=== PATIENT | female | born 1945 | race Caucasian/White ===

== ENCOUNTER 2016-09-14 20:45 | Outpatient (CLI) | payer MEDICARE, OTHER ==
[~2016-09-14 20:45] MED LIST: ALFA600T PO; AMIT25TA9 PO; ATOR10TA66 PO; ATOR20TA66 PO; BISO5TAB PO; BLACK CHERRY; CELE200C PO; CLCX200C PO; D ME PO; DIPH1TAB PO; DM/P295L13 PO; DULO60CA58 PO; DULO60CA6 PO; ESCT10T PO; EST.625T PO; FAMO-119 PO; GABA-531 PO; GABA300C PO; GBPN100C PO; GLIM2TAB PO; GLUC1CAP45 PO; HCT25T PO; HYDR-2890 PO; HYDR-3820 PO; KRIL1CAP12 PO; LOSA50TA36 PO; LSRT50T PO; METF1000 PO; METF500T4 PO; METO-310 PO; MTF500T PO; MULT-974 PO; NIAC1TBM5 PO; OMEP-10 PO; ROYA500C PO; TRAM50TA2 PO; VIT1TABL57 PO; [UNRECOGNIZED DRUG - CODE] PO
--- OUTSIDE RECORDS SUMMARY | 2016-09-14 21:24 | XMS REPORT | Continuity of Care Document ---
Author Author [facility] Organization [facility] Address Unknown Phone Unavailable Care Team Providers Care Assistant Professor Of Sociology Name Role Phone EDEN NEWMAN MD PCP Insurance Providers Payer Name Policy Number Subscriber Name Relationship [employer] Medicare [id number] Kandice Borja 18 Self / Same As Patient For Life [id number] Alphonse Borja 01 Advance Directives Directive Response Recorded Date/Time Advance Directives No 06/25/14 10:02am Health Care Power of Taxicab Driver No 06/25/14 10:02am Organ Donor Yes 06/25/14 10:02am Resuscitation Status Full Code 06/25/14 10:02am Problems No known problems or medical conditions. Medications Medication Dose Route Sig Days/Qty Instructions Order Date Discontinued Date Status Metformin HCl (Glucophage) 1 Each PO TWICE A DAY WITH MEALS 01/03/12 Active Omeprazole 20 Mg PO DAILY 01/03/12 Active Celecoxib 1 Each PO TWICE A DAY 01/03/12 Active Losartan Potassium 50 Mg PO DAILY 01/03/12 Active Hydrochlorothiazide 1 Each PO DAILY 01/03/12 Active Niacin/Simvastatin 1 Each PO 01/03/12 Active Estrogens Conjugated 1 Tab PO DAILY 30 Qty 01/03/12 10/23/13 Discontinued Escitalopram Oxalate 1 Each PO DAILY 01/03/12 10/23/13 Discontinued Gabapentin 100 Mg PO DAILY 10/23/13 Active Gabapentin 3 Each PO BEDTIME 10/23/13 Active Multivitamin 1 Each PO DAILY 10/23/13 Active Vit D3 & K/Berberine Hcl/Hops 1 Each PO DAILY 10/23/13 Active [place] Jelly 500 Mg PO DAILY 10/23/13 Active Krill/[place]-3/Dha/Epa/Lipids 1 Each PO DAILY 10/23/13 Active Glucosamine Sulfate/Msm 1 Each PO DAILY 10/23/13 Active [Black Cardona] 1,000 Mg DAILY 10/23/13 Active Mag Carb/Al Hydrox/Alginic Ac 355 Ml PO AFTER MEALS PRN INDIGESTION 10/23/13 Active [place] 600 Mg PO DAILY 3 Qty 10/23/13 Active Hydrocodone Bit/Acetaminophen 1 Each PO NEEDED 10/23/13 Active D-Methorphan/Pe/Acetaminophen 237 Ml PO NEEDED For COUGH 10/23/13 Active Dm/P-Ephed/Acetaminoph/Doxylam 295 Ml PO NEEDED For COUGH Active Social History Social History Problem Response Recorded Date/Time Recent Foreign Travel No 06/25/2014 10:02am Hospital Discharge Instructions No hospital discharge instructions. Plan of Care No plan of care. Functional Status No functional status results. Allergies, Adverse Reactions, Alerts Allergen Type Severity Reaction Status Last Updated Penicillins ([id number]) Allergy Active 01/04/12 Immunizations Name Given Type Date of Pneumonia Vaccine 09/06/10 Historical Date of Influenza Vaccine 08/12/13 Historical Vital Signs Acute Vital Signs Vital Response Date/Time Temperature (Fahrenheit) 97.2 degrees F (97.6 - 99.5) Temperature (Calculated Celsius) 36.54665 degrees C (36.4 - 37.5) Temperature Source Tympanic Pulse Rate (adult) 70 bpm (60 - 90) Respiratory Rate 14 bpm (12 - 24) O2 Sat by Pulse Oximetry 100 % (88 - 100) Blood Pressure 135/70 mm Hg Pain Pain Intensity 0 Pain Pain Intensity 0 Height (Feet) 5 feet Height (Inches) 7.00 inches Height (Calculated Centimeters) 170.500520 cm Weight (Pounds) 192 pounds Weight (Calculated Grams) 41256.736 gm Weight (Calculated Kilograms) 87.371832 kilograms Calculated BMI 30.07 Results Test Source Date Result Interp. Ref. Range Comments Stool Occult Blood Immunoassay January 02, 2012 4:46pm POSITIVE H - Ova and Parasites Stool January 03, 2012 9:40am Procedures No known history of procedures. Encounters Encounter Location Date/Time Registered Clinic Via [facility] 06/25/14 9:03am
== END 2016-09-15 06:45 | disposition home or self-care (01) ==
LOC: SLEEP 20:45
PROVIDERS: ATTEND Nurse Practitioner Family
DX: G47.33 Obstructive sleep apnea (adult) (pediatric) (principal); G47.10 Hypersomnia, unspecified; G47.34 Idiopathic sleep related nonobstructive alveolar hypoventilation
CPT/HCPCS: 95811

== ENCOUNTER → 2016-10-19 | Outpatient (CLI) | payer MEDICARE, OTHER ==
--- OUTSIDE RECORDS SUMMARY | 2016-10-19 12:55 | XMS REPORT | Continuity of Care Document ---
Author Author [facility] Organization [facility] Address Unknown Phone Unavailable Care Team Providers Care Stretch Machine Operator Name Role Phone EDEN NEWMAN MD PCP Insurance Providers Payer Name Policy Number Subscriber Name Relationship Wps Medicare [id number] Kandice Borja 18 Self / Same As Patient For Life [id number] Alphonse Borja 01 Advance Directives Directive Response Recorded Date/Time Advance Directives No 06/25/14 10:02am Health Care Power of Manufacturing Support Engineer No 06/25/14 10:02am Organ Donor Yes 06/25/14 [...] Hcl/Hops 1 Each PO DAILY 10/23/13 Active [place] Jelly 500 Mg PO DAILY 10/23/13 Active Krill/[place]-3/Dha/Epa/Lipids 1 Each PO DAILY 10/23/13 Active Glucosamine Sulfate/Msm 1 Each PO DAILY 10/23/13 Active [Black Cardona] 1,000 Mg DAILY 10/23/13 Active Mag Carb/Al Hydrox/Alginic Ac 355 Ml PO AFTER MEALS PRN INDIGESTION 10/23/[address] [place] 600 Mg PO DAILY 3 Qty 10/23/13 [...] Type Severity Reaction Status Last Updated Penicillins ([id number]) Allergy Active 01/04/12 Immunizations Name Given Type Date of Pneumonia Vaccine 09/06/10 Historical Date of Influenza Vaccine 08/12/13 Historical Vital Signs Acute Vital Signs Vital Response Date/Time Temperature (Fahrenheit) 97.2 degrees F (97.6 - 99.5) Temperature (Calculated Celsius) 36.21707 degrees C (36.4 - 37.5) Temperature Source Tympanic Pulse Rate (adult) 70 bpm (60 - 90) Respiratory Rate 14 bpm (12 - 24) O2 Sat by Pulse Oximetry 100 % (88 - 100) Blood Pressure 135/70 mm Hg Pain Pain Intensity 0 Pain Pain Intensity 0 Height (Feet) 5 feet Height (Inches) 7.00 inches Height (Calculated Centimeters) 170.053255 cm Weight (Pounds) 192 pounds Weight (Calculated Grams) 71640.736 gm Weight (Calculated Kilograms) 87.464213 kilograms Calculated BMI 30.07 Results Test Source Date Result Interp. Ref. Range Comments Stool Occult Blood Immunoassay January 02, 2012 4:46pm POSITIVE H - Ova and Parasites Stool January 03, 2012 9:40am Procedures No known history of procedures. Encounters Encounter Location Date/Time Registered Clinic [facility] 06/25/14 9:03am
== END ==
LOC: RT 12:52
PROVIDERS: ATTEND Internal Medicine Critical Care Medicine
DX: R06.00 Dyspnea, unspecified (principal)
CPT/HCPCS: 94060; 94726; 94729

== ENCOUNTER → 2017-03-20 | Outpatient (CLI) | payer MEDICARE, OTHER ==
[2017-03-20 12:27] LABS: BILIRUBIN,URINE NEGATIVE (NEGATIVE); KETONES,URINE NEGATIVE (NEGATIVE); LEUKOCYTE ESTERASE ,URINE 3+ (NEGATIVE); NITRITE,URINE NEGATIVE (NEGATIVE); PH,URINE 8 (5-9); PROTEIN,URINE NEGATIVE (NEGATIVE); UROBILINOGEN,URINE NORMAL (NORMAL)
[2017-03-20 12:34] LABS: SQUAMOUS EPITHELIAL CELL,UR 0-2 /HPF; WBC,URINE >100 /HPF
== END ==
LOC: LAB 12:00
PROVIDERS: ATTEND Internal Medicine
DX: R30.0 Dysuria (principal)
CPT/HCPCS: 81000; 87088

== ENCOUNTER 2017-04-25 10:00 | Outpatient (RCR) | payer MEDICARE, OTHER | END 2017-04-28 | disposition home or self-care (01) | LOC: PULM 10:00 | PROVIDERS: ATTEND Nurse Practitioner Family | DX: J98.4 Other disorders of lung (principal); G47.34 Idiopathic sleep related nonobstructive alveolar hypoventilation | CPT/HCPCS: 99211 ==

== ENCOUNTER 2017-05-23 10:00 | Outpatient (RCR) | payer MEDICARE, OTHER | END 2017-05-25 | disposition home or self-care (01) | LOC: PULM 10:00 | PROVIDERS: ATTEND Nurse Practitioner Family | DX: J98.4 Other disorders of lung; G47.34 Idiopathic sleep related nonobstructive alveolar hypoventilation ==

== ENCOUNTER 2017-08-13 10:00 | Outpatient (RCR) | payer MEDICARE, OTHER | END 2017-08-26 | disposition home or self-care (01) | LOC: PULM 10:00 | PROVIDERS: ATTEND Nurse Practitioner Family | DX: J98.4 Other disorders of lung (principal); G47.34 Idiopathic sleep related nonobstructive alveolar hypoventilation ==

== ENCOUNTER 2018-02-02 19:23 | Emergency (ER) | payer MEDICARE, OTHER ==
[~2018-02-02] VITALS: Ht 172.7 cm; Wt 93.2 kg
[~2018-02-02 19:23] MED LIST changes: -METF1000 PO; +METF10002 PO; -METF500T4 PO; +METF500T5 PO
--- OUTSIDE RECORDS SUMMARY | 2018-02-02 19:29 | XMS REPORT ---
Author HEIDI Swenson [facility] [place] eClinicalWorks Address Unknown Phone Unavailable Care Team Providers Care Maxillofacial Pathology Name Role Phone HEIDI HUFFMAN CP Unavailable Allergies No Known Allergies Problems Problem Type Condition Code Onset Dates Condition Status Assessment Encounter for immunization Z23 Active Medications No Known Medications Procedures Procedure Coding System Code Date SINGLE IMMUNIZATION ADMIN CPT-4 21042 Jun 20, 2016 PCV 13 CPT-4 10034 Jun 20, 2016 Results No Known Results Immunizations Vaccine Administration Date PCV 13 Jun 20, 2016 Summary Purpose eClinicalWorks Submission
[2018-02-02] MEDS ORDERED: EXEN2PEN (20:20)
[2018-02-02] MEDS ORDERED: LOSA100T28 (20:20)
[2018-02-02] MEDS ORDERED: BUDE3CAP5 (20:20)
[2018-02-02] MEDS ORDERED: ROPI0.25 (20:20)
--- NOTE | 2018-02-02 21:29 | Diagnostic Imaging Report ---
INDICATION: Right knee pain x1 month. No known injury. TECHNIQUE: 3 views of the right knee CORRELATION STUDY: None FINDINGS: The joint spaces are maintained. The articular surfaces are smooth and preserved. There is no acute bony abnormality. Soft tissues are unremarkable. IMPRESSION: 1. Negative for acute bony abnormality of the knee. Dictated by: Dictated on workstation # [id number]
--- NOTE | 2018-02-02 21:41 | ED Lower Extremity ---
General Chief Complaint: Lower Extremity Stated Complaint: POSS BLOOD CLOT Nursing Triage Note: Patient reports calf pain since . patient reports pain is worse when she walks. patient also reports a positive homans sign Nursing Sepsis Screen: No Definite Risk History of Present Illness Date Seen by Provider: Feb 02, 2018 Time Seen by Provider: 20:45 Initial Comments 72-year-old female reports right calf pain since 01/30/18. She is concerned that she may have a blood clot as she has been doing Homans sign and having pain with this. He is a retired nurse. She denies an injury to her right lower extremity. She has been having some right knee, joint line tenderness. She has no risk factors for blood clot other than being sedentary. She reports sitting for prolonged periods of time with her knees bent. The pain began when she was walking in a fabric store last week. The pain has not improved and is even been significant enough that she is required hydrocodone for management. She does have a positive history of sciatica with radicular pain in the left leg. She reports the current symptoms are not similar to when her sciatica flares up. Onset: last week Pain/Injury Location: right leg, right knee Method of Injury: unknown Modifying Factors: Improves With Pain Medication, Improves With Rest Allergies and Home Medications Allergies Coded Allergies: Penicillins (Unverified Allergy, Unknown, 05/02/16) Home Medications Amitriptyline HCl 25 Mg Tablet, 25 MG PO HS, (Reported) Famotidine 20 Mg Tablet, 20 MG PO BID, (Reported) Patient Home Medication List Home Medication List Reviewed: Yes Constitutional: no symptoms reported, see HPI Musculoskeletal: see HPI, muscle pain (right calf) All Other Systems Reviewed Negative Unless Noted: Yes Past Dmzenvz-Mljlas-Trbrxd Hx Past Med/Social Hx: Reviewed Nursing Past Med/Soc Hx Patient Social History Alcohol Use: Denies Use Recreational Drug Use: No Smoking Status: Never a Smoker Recent Foreign Travel: No Contact w/Someone Who Travel: No Recent Infectious Disease Expo: No Immunizations Up To Date Tetanus Booster (TDap): Less than 5yrs PED Vaccines UTD: Yes Date of Pneumonia Vaccine: May 26, 2012 Date of Influenza Vaccine: Aug 12, 2013 Past Medical History Surgeries: Yes (CATATACTS) Gallbladder, Hysterectomy Respiratory: No Currently Using CPAP: No Currently Using BIPAP: No Cardiac: No Heart Attack, High Cholesterol, Hypertension Neurological: Yes Headaches /Migraines Reproductive Disorders: No Sexually Transmitted Disease: No HIV/AIDS: No Gastrointestinal: No Musculoskeletal: Yes (ARTHRITIS, chronic neck pain) Endocrine: Yes Diabetes, Non-Insulin dep Cataract Loss of Vision: Denies Hearing Impairment: Denies Cancer: No Psychosocial: No Integumentary: No Blood Disorders: No Family Medical History Cardiovascular disease 19 FATHER Cataracts 19 FATHER G8 SISTER Diabetes mellitus 19 MOTHER G8 SISTER Myocardial infarction 19 FATHER No Pertinent Family Hx Physical Exam Vital Signs Vital Signs - First Documented 02/02/18 20:15 Temp 98.7 Pulse 89 Resp 18 B/P (MAP) 188/101 (130) Pulse Ox 99 Capillary Refill : Less Than 3 Seconds General Appearance: WD/WN, no apparent distress Cardiovascular: normal peripheral pulses (dorsalis pedis pulses 2+ and symmetric, posterior tibialis pulses 1+ and symmetric, cap refill and toes less than 5 seconds bilaterally.), regular rate, rhythm, no murmur Respiratory: chest non-tender, lungs clear, normal breath sounds, no respiratory distress Gastrointestinal: normal bowel sounds, non tender, soft Legs: left leg non-tender, left leg normal inspection, left leg normal range of motion, left leg no evidence of injury; right leg pain (throughout the right gastrocnemius), right leg other (positive Homans sign) Knees: right knee normal inspection, right knee normal range of motion, right knee no evidence of injury, right knee bone tenderness (medial tibia), right knee soft tissue tenderness Ankles: right ankle non-tender, right ankle normal inspection, right ankle normal range of motion, right ankle no evidence of injury Neurologic/Psychiatric: no motor/sensory deficits, alert, normal mood/affect, oriented x 3 Progress/Results/Core Measures Results/Orders My Orders Orders - NICKIE GARNICA Knee, Right, 3 Views (02/02/18 20:58) Us Venous Lower Ext Rt (02/02/18 21:29) Vital Signs/I&O 02/02/18 02/02/18 20:15 21:50 Temp 98.7 98.7 Pulse 89 89 Resp 18 18 B/P (MAP) 188/101 (130) 162/89 (130) Pulse Ox 99 99 Blood Pressure Mean: 130 Progress Progress Note : Time: 20:45 Progress Note Initial evaluation completed, recommended ultrasound of the right lower extremity and x-ray of the right knee. Will continue to follow patient. Diagnostic Imaging Diagonstic Imaging: Xray Plain Films/CT/US/NM/MRI: knee Comments NAME: HYUN BORJA [facility] REC#: [id number] PT STATUS: REG ER : 1945 PHYSICIAN: NICKIE GARNICA ADMIT DATE: 02/02/18/ER Signed Date of Exam: 02/02/18 KNEE, RIGHT, 3 VIEWS INDICATION: Right knee pain x1 month. No known injury. TECHNIQUE: 3 views of the right knee CORRELATION STUDY: None FINDINGS: The joint spaces are maintained. The articular surfaces are smooth and preserved. There is no acute bony abnormality. Soft tissues are unremarkable. IMPRESSION: 1. Negative for acute bony abnormality of the knee. Dictated by: Dictated on workstation # [id number] Dict: 02/02/182125 Trans: 02/02/182126 Interpreted by: JAME COLBY DO Electronically signed by: JAME COLBY DO 02/02/182126 Reviewed: Reviewed/Discussed Diagonstic Imaging: Ultrasound Plain Films/CT/US/NM/MRI: leg (right lower extremity) Comments No DVT or cyst noted on study, per video game repair technician. Will be over read by radiology. Departure Impression Primary Impression: Pain of right lower extremity Disposition: HOME, SELF-CARE Condition: Stable Departure-Patient Inst. Decision time for Depature: 21:40 Referrals: EDEN SANCHEZ MD (PCP/Family) Primary Care Physician Patient Instructions: Knee Pain (DC) Add. Discharge Instructions: Alternate heat and ice to areas of pain and right lower extremity. Continue to take your home medications and pain medication as needed. Follow-up with Dr. Sanchez if symptoms are not improving or worsen. Return to emergency department for new, urgent health care problems. All discharge instructions reviewed with patient and/or family. Voiced understanding. NICKIE GARNICA Feb 02, 2018 21:41
[2018-02-02 21:50] VITALS: BP 162/89
--- NOTE | 2018-02-06 14:36 | Diagnostic Imaging Report ---
INDICATION: Right leg pain. Right leg venous Doppler study was performed in the routine fashion with color flow Doppler and waveform analysis. FINDINGS: The right common femoral vein, superficial femoral vein, popliteal vein and visualized portion of the tibial veins show normal compressibility and venous flow patterns. There is normal augmentation. IMPRESSION: No evidence of deep vein thrombosis of the major veins of the right leg. Dictated by: Dictated on workstation # [id number]
== END 2018-02-02 21:50 | disposition home or self-care (01) ==
LOC: EDUNIT# 19:23 → ER 19:25
DX: M79.661 Pain in right lower leg (principal); E78.00 Pure hypercholesterolemia, unspecified; I10 Essential (primary) hypertension; I25.2 Old myocardial infarction; E11.9 Type 2 diabetes mellitus without complications; G43.909 Migraine, unspecified, not intractable, without status migrainosus; Z88.0 Allergy status to penicillin; Z90.710 Acquired absence of both cervix and uterus; Z82.49 Family history of ischemic heart disease and other diseases of the circulatory system
CPT/HCPCS: 73562

== ENCOUNTER 2018-05-21 12:55 | Outpatient (RCR) | payer MEDICARE, OTHER ==
[~2018-05-21 12:55] MED LIST changes: +BUDE3CAP5; +EXEN2PEN; +LOSA100T8; -LOSA50TA36 PO; +LOSA50TA7 PO; +METF-397 PO; +METF-399 PO; -METF10002 PO; -METF500T5 PO; +ROPI0.253
== END 2018-05-26 08:47 | disposition home or self-care (01) ==
PROVIDERS: ATTEND Internal Medicine
DX: R53.1 Weakness (principal); E11.9 Type 2 diabetes mellitus without complications; R29.6 Repeated falls

== ENCOUNTER → 2018-06-30 | Outpatient (CLI) | payer MEDICARE, OTHER ==
[~2018-06-30] MED LIST changes: +RT-ALBUTEROL SULF 2.5 MG/3 ML PRE-MIX VIAL INH ONE
== END ==
LOC: RT 11:18
PROVIDERS: ATTEND Nurse Practitioner Family
DX: R06.00 Dyspnea, unspecified (principal); G47.34 Idiopathic sleep related nonobstructive alveolar hypoventilation; J98.4 Other disorders of lung; E66.9 Obesity, unspecified
CPT/HCPCS: 94060; 94726; 94729

== ENCOUNTER 2018-07-04 13:11 | Outpatient (RCR) | payer MEDICARE, OTHER ==
[~2018-07-04 13:11] MED LIST changes: -RT-ALBUTEROL SULF 2.5 MG/3 ML PRE-MIX VIAL INH ONE
== END 2018-07-04 14:18 | disposition home or self-care (01) ==
PROVIDERS: ATTEND Internal Medicine
DX: R53.1 Weakness (principal); E11.9 Type 2 diabetes mellitus without complications; R29.6 Repeated falls

== ENCOUNTER 2018-07-14 14:14 | Outpatient (RCR) | payer MEDICARE, OTHER ==
[~2018-07-14] VITALS: Ht 172.7 cm; Wt 92.1 kg
[~2018-07-14 14:14] MED LIST changes: +LOSA100T57; -LOSA100T8; +LOSA50TA63 PO; -LOSA50TA7 PO
[2018-07-14 14:18] VITALS: BP 140/60
--- NOTE | 2018-07-14 14:50 | Pulmonary Rehab Eval/Txmt Plan ---
Pulmonary Rehab Initial Eval Information Paper Evaluation Completed: No Date: Jul 14, 2018 Therapist: YOBANY DURAN Diagnosis: RLD Referring Physician: LEYDI LOUIS APRN Pulmonary Rehab Treatment Plan Treatment P Treatment Periord: Initial Diagnosis Diagnosis: RLD Date: Jul 14, 2018 Assessment/Problems Exercise: Deconditioning, Decreased Exer Tolerance, No Regular Exercise, Sedentary Type: AEROBIC PER PT MARGARETH; PT HAS BALANCE ISSUES Frequency: 2X WEEK Duration: 1 HR, EXERCISE PER PT'S MARGARETH Barriers to Exercise: BALLANCE Initial MET Level: 1 Aerobic Exercise/Goals Freq: time per week minus AR: 2 Intensity: 1 Type: Arm Ergometry, Bike, Scifi/Nustep, Treadmill, Walking LAYLA JUARES DO Jul 14, 2018 14:50
== END 2018-10-12 | disposition home or self-care (01) ==
LOC: PULM 14:14
PROVIDERS: ATTEND Nurse Practitioner Family
DX: R06.00 Dyspnea, unspecified (principal); J98.4 Other disorders of lung; G47.33 Obstructive sleep apnea (adult) (pediatric)

== ENCOUNTER 2018-08-09 14:54 | Emergency (ER) | payer MEDICARE, OTHER ==
[~2018-08-09] VITALS: Ht 162.6 cm; Wt 72.6 kg
[~2018-08-09 14:54] MED LIST changes: -LOSA100T57; +LOSA100T8; -LOSA50TA63 PO; +LOSA50TA7 PO
--- OUTSIDE RECORDS SUMMARY | 2018-08-09 15:03 | XMS REPORT | Continuity of Care Document ---
Author Author [facility] Organization [facility] Address Unknown Phone Unavailable Allergies Active Description Code Type Severity Reaction Onset Reported/Identified Relationship to Patient Clinical Status Yes Penicillins [id number] Drug Allergy Unknown N/A 05/02/2016 Medications There is no data. Problems Date Dx Coded Attending Type Code Diagnosis Diagnosed By EDEN NEWMAN MD Ot E11.9 TYPE 2 DIABETES MELLITUS WITHOUT COMPLIC EDEN NEWMAN MD Ot R29.6 REPEATED FALLS EDEN NEWMAN MD Ot R53.1 WEAKNESS 07/25/1417 EDEN NEWMAN MD Ot E11.9 TYPE 2 DIABETES MELLITUS WITHOUT COMPLIC 07/25/1417 EDEN NEWMAN MD Ot R29.6 REPEATED FALLS 07/25/1417 EDEN NEWMAN MD Ot R53.1 WEAKNESS 01/02/2010 Ot 250.00 01/02/2010 Ot 311 01/02/2010 Ot 722.52 01/02/2010 Ot V57.1 01/04/2012 Ot 558.9 NONINF GASTROENTERIT NEC 04/01/2012 Ot 787.91 DIARRHEA 10/23/2013 EDEN NEWMAN MD Ot 211.1 BENIGN NEOPLASM STOMACH 10/23/2013 EDEN NEWMAN MD Ot 535.40 OTH SPECIFIED GASTRITIS,W/O MENTION OF H 06/25/2014 GANESH SANCHEZ MD Ot 721.3 LUMBOSACRAL SPONDYLOSIS 06/25/2014 GANESH SANCHEZ MD Ot 722.52 LUMB/LUMBOSAC DISC DEGEN 06/25/2014 GANESH SANCHEZ MD Ot V58.69 OTH MED,LT,CURRENT USE 12/15/2014 Ot V76.12 12/15/2014 Ot V76.12 12/15/2014 Ot V76.12 12/15/2014 Ot V72.84 12/15/2014 Ot 787.91 12/15/2014 EDEN NEWMAN MD Ot V72.84 12/15/2014 TRENT NAZARIO, EDEN Resendiz Ot 440.0 12/15/2014 TRENT NAZARIO, EDEN Resendiz Ot 553.1 12/15/2014 TRENT NAZARIO, EDEN Resendiz Ot 571.8 12/15/2014 TRENT NAZARIO, EDEN Resendiz Ot 789.00 12/15/2014 TRENT NAZARIO, EDEN Resendiz Ot 790.5 12/15/2014 LAURA NAZARIO, GANESH Fitzpatrick Ot 722.52 12/17/2014 TRENT NAZARIO, EDEN Resendiz Ot V76.12 12/17/2014 TRENT NAZARIO, EDEN Resendiz Ot V76.12 12/24/2014 TRENT NAZARIO, EDEN Resendiz Ot V76.12 12/27/2014 Ot V76.12 12/27/2014 Ot V76.12 12/27/2014 Ot V72.84 12/27/2014 Ot 787.91 12/27/2014 TRENT NAZARIO, EDEN Resendiz Ot V72.84 12/27/2014 TRENT NAZARIO, EDEN Resendiz Ot 440.0 12/27/2014 TRENT NAZARIO, EDEN Resendiz Ot 553.1 12/27/2014 TRENT NAZARIO, EDEN Resendiz Ot 571.8 12/27/2014 TRENT NAZARIO, EDEN Resendiz Ot 789.00 12/27/2014 TRENT NAZARIO, EDEN Resendiz Ot 790.5 12/27/2014 GANESH SANCHEZ MD Ot 722.52 12/27/2014 TRENT NAZARIO, EDEN Resendiz Ot V76.12 12/31/2014 LAURA NAZARIO, GANESH Fitzpatrick Ot 722.52 LUMB/LUMBOSAC DISC DEGEN 12/31/2014 LAURA NAZARIO, GANESH Fitzpatrick Ot V58.69 OT MED,LT,CURRENT USE 12/31/2014 Ot V76.12 12/31/2014 Ot V76.12 12/31/2014 Ot V76.12 12/31/2014 Ot V72.84 12/31/2014 Ot 787.91 12/31/2014 TRENT NAZARIO, EDEN Resendiz Ot V72.84 12/31/2014 TRENT NAZARIO, EDEN Resendiz Ot 440.0 12/31/2014 TRENT NAZARIO, EDEN Resendiz Ot 553.1 12/31/2014 TRENT NAZARIO, EDEN Resendiz Ot 571.8 12/31/2014 TRENT NAZARIO, EDEN Resendiz Ot 789.00 12/31/2014 EDEN NEWMAN MD Ot 790.5 12/31/2014 GANESH SANCHEZ MD Ot 722.52 12/31/2014 EDEN NEWMAN MD Ot V76.12 12/31/2014 GANESH SANCHEZ MD Ot 722.52 01/03/2015 EDEN NEWMAN MD Ot V76.12 01/03/2015 EDEN NEWMAN MD Ot V76.12 01/14/2015 EDEN NEWMAN MD Ot V76.12 01/31/2015 GANESH SANCHEZ MD Ot 722.52 02/09/2015 GANESH SANCHEZ MD Ot 722.52 05/03/2015 GANESH SANCHEZ MD Ot 722.52 05/03/2015 GANESH SANCHEZ MD Ot V58.69 05/16/2015 GANESH SANCHEZ MD Ot 722.52 05/16/2015 GANESH SANCHEZ MD Ot V58.69 07/08/2015 Ot V76.12 07/08/2015 Ot V76.12 07/08/2015 Ot V76.12 07/08/2015 Ot V72.84 07/08/2015 Ot 787.91 07/08/2015 EDEN NEWMAN MD Ot V72.84 07/08/2015 TRENT NAZARIO, EDEN Resendiz Ot 440.0 07/08/2015 EDEN NEWMAN MD Ot 553.1 07/08/2015 EDEN NEWMAN MD Ot 571.8 07/08/2015 EDEN NEWMAN MD Ot 789.00 07/08/2015 EDEN NEWMAN MD Ot 790.5 07/08/2015 GANESH SANCHEZ MD Ot 722.52 07/08/2015 EDEN NEWMAN MD Ot V76.12 07/08/2015 GANESH SANCHEZ MD Ot 722.52 07/08/2015 GANESH SANCHEZ MD Ot 722.52 07/08/2015 GANESH SANCHEZ MD Ot V58.69 07/08/2015 GANESH SANCHEZ MD Ot M51.16 INTERVERTEBRAL DISC DISORDERS W RADICULO 07/08/2015 GANESH SANCHEZ MD Ot 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69 10/18/2015 Ot V76.12 10/18/2015 Ot V76.12 10/18/2015 Ot V72.84 10/18/2015 Ot 787.91 10/18/2015 TRENT NAZARIO, EDEN Resendiz Ot V72.84 10/18/2015 TRENT NAZARIO, EDEN Resendiz Ot 440.0 10/18/2015 TRENT NAZARIO, EDEN Resendiz Ot 553.1 10/18/2015 TRENT NAZARIO, EDEN Resendiz Ot 571.8 10/18/2015 TRENT NAZARIO, EDEN Resendiz Ot 789.00 10/18/2015 TRENT NAZARIO, EDEN Resendiz Ot 790.5 10/18/2015 GANESH SANCHEZ MD Ot 722.52 10/18/2015 EDEN NEWMAN MD Ot V76.12 10/18/2015 GANESH SANCHEZ MD Ot 722.52 10/18/2015 GANESH SANCHEZ MD Ot 722.52 10/18/2015 GANESH SANCHEZ MD Ot V58.69 12/06/2015 Ot V76.12 12/06/2015 Ot V76.12 12/06/2015 Ot V72.84 12/06/2015 Ot 787.91 12/06/2015 TRENT NAZARIO, EDEN Resendiz Ot V72.84 12/06/2015 TRENT NAZARIO, EDEN Resendiz Ot 440.0 12/06/2015 TRENT NAZARIO, EDEN Resendiz Ot 553.1 12/06/2015 EDEN NEWMAN MD Ot 571.8 12/06/2015 TRENT NAZARIO, EDEN Resendiz Ot 789.00 12/06/2015 EDEN NEWMAN MD Ot 790.5 12/06/2015 LAURA NAZARIO, GANESH Fitzpatrick Ot 722.52 12/06/2015 EDEN NEWMAN MD Ot V76.12 12/06/2015 LAURA NAZARIO, GANESH Fitzpatrick Ot 722.52 12/06/2015 LAURA NAZARIO, GANESH Fitzpatrick Ot 722.52 12/06/2015 LAURA NAZARIO, GANESH Fitzpatrick Ot V58.69 12/12/2015 TRENT NAZARIO, EDEN Resendiz Ot R51 HEADACHE 12/28/2015 EDEN NEWMAN MD Ot R51 HEADACHE 12/30/2015 O'FRAGA, KAMLESH T BOILERS INSPECTOR Ot G47.10 HYPERSOMNIA, UNSPECIFIED 12/30/2015 O'FRAGA, KAMLESH T BOILERS INSPECTOR Ot H02.402 UNSPECIFIED PTOSIS OF LEFT EYELID 12/30/2015 O'FRAGA, KAMLESH T BOILERS INSPECTOR Ot M54.2 CERVICALGIA 12/30/2015 O'FRAGA, KAMLESH T BOILERS INSPECTOR Ot M79.609 PAIN IN UNSPECIFIED LIMB 12/30/2015 O'FRAGA, KAMLESH T BOILERS INSPECTOR Ot R00.0 TACHYCARDIA, UNSPECIFIED 12/30/2015 O'FRAGA, KAMLESH T BOILERS INSPECTOR Ot R20.2 PARESTHESIA OF SKIN 12/30/2015 O'FRAGA, KAMLESH T BOILERS INSPECTOR Ot R27.0 ATAXIA, UNSPECIFIED 12/30/2015 O'FRAGA, KAMLESH T BOILERS INSPECTOR Ot R29.2 ABNORMAL REFLEX 12/30/2015 O'FRAGA, KAMLESH T BOILERS INSPECTOR Ot R51 HEADACHE 01/07/2016 Ot V76.12 OTH SCREEN MAMMO-MALIGN NEOPLASM OF [place] 01/07/2016 Ot V76.12 OTH SCREEN MAMMO-MALIGN NEOPLASM OF [place] 01/07/2016 Ot V72.84 EXAM PRE- OPERATIVE NOS 01/07/2016 Ot 787.91 DIARRHEA 01/07/2016 EDEN NEWMAN MD Ot V72.84 EXAM PRE-OPERATIVE NOS 01/07/2016 TRENT NAZARIO, EDEN Resendiz Ot 440.0 AORTIC ATHEROSCLEROSIS 01/07/2016 EDEN NEWMAN MD Ot 553.1 UMBILICAL HERNIA 01/07/2016 EDEN NEWMAN MD Ot 571.8 CHRONIC LIVER DIS NEC 01/07/2016 TRENT NAZARIO, EDEN Resendiz Ot 789.00 ABDOMINAL PAIN, UNSPECIFIED SITE 01/07/2016 EDEN NEWMAN MD Ot 790.5 ABN SERUM ENZY LEVEL NEC 01/07/2016 LAURA NAZARIO, GANESH Fitzpatrick Ot 722.52 LUMB/LUMBOSAC DISC DEGEN 01/07/2016 EDEN NEWMAN MD Ot V76.12 OTH SCREEN MAMMO-MALIGN NEOPLASM OF [place] 01/07/2016 GANESH SANCHEZ MD Ot 722.52 LUMB/LUMBOSAC DISC DEGEN 01/07/2016 GANESH SANCHEZ MD Ot 722.52 LUMB/LUMBOSAC DISC DEGEN 01/07/2016 GANESH SANCHEZ MD Ot V58.69 OTH MED,LT,CURRENT USE 01/07/2016 EDEN NEWMAN MD Ot R51 HEADACHE 01/07/2016 O'FRAGA, KAMLESH T BOILERS INSPECTOR Ot G47.10 HYPERSOMNIA, UNSPECIFIED 01/07/2016 O'FRAGA, KAMLESH T BOILERS INSPECTOR Ot H02.402 UNSPECIFIED PTOSIS OF LEFT EYELID 01/07/2016 O'FRAGA, KAMLESH T BOILERS INSPECTOR Ot M54.2 CERVICALGIA 01/07/2016 O'FRAGA, KAMLESH T BOILERS INSPECTOR Ot M79.609 PAIN IN UNSPECIFIED LIMB 01/07/2016 O'FRAGA, KAMLESH T BOILERS INSPECTOR Ot R00.0 TACHYCARDIA, UNSPECIFIED 01/07/2016 O'FRAGA, KAMLESH T BOILERS INSPECTOR Ot R20.2 PARESTHESIA OF SKIN 01/07/2016 O'FRAGA, KAMLESH T BOILERS INSPECTOR Ot R27.0 ATAXIA, UNSPECIFIED 01/07/2016 O'FRAGA, KAMLESH T BOILERS INSPECTOR Ot R29.2 ABNORMAL REFLEX 01/07/2016 O'FRAGA, KAMLESH T BOILERS INSPECTOR Ot R51 HEADACHE 01/07/2016 EDEN NEWMAN MD Ot R19.7 DIARRHEA, UNSPECIFIED 01/07/2016 Ot 787.91 DIARRHEA 01/07/2016 EDEN NEWMAN MD Ot R19.7 DIARRHEA, UNSPECIFIED 01/10/2016 EDEN NEWMAN MD Ot R51 HEADACHE 01/11/2016 EDEN NEWMAN MD Ot A09 INFECTIOUS GASTROENTERITIS AND COLITIS, 01/11/2016 EDEN NEWMAN MD Ot A41.51 SEPSIS DUE TO ESCHERICHIA COLI [E. COLI] 01/11/2016 TRENT NAZARIO, EDEN Resendiz Ot E11.65 TYPE 2 DIABETES MELLITUS WITH HYPERGLYCE 01/11/2016 TRENT NAZARIO, EDEN Resendiz Ot E78.0 PURE HYPERCHOLESTEROLEMIA 01/11/2016 EDEN NEWMAN MD Ot E83.42 HYPOMAGNESEMIA 01/11/2016 EDEN NEWMAN MD Ot E86.0 DEHYDRATION 01/11/2016 EDEN NEWMAN MD Ot E87.6 HYPOKALEMIA 01/11/2016 EDEN NEWMAN MD Ot I10 ESSENTIAL (PRIMARY) HYPERTENSION 01/11/2016 EDEN NEWMAN MD Ot I25.10 ATHSCL HEART DISEASE OF [place] CORONARY 01/11/2016 EDEN NEWMAN MD Ot I25.2 OLD MYOCARDIAL INFARCTION 01/11/2016 EDEN NEWMAN MD Ot K85.9 ACUTE PANCREATITIS, UNSPECIFIED 01/11/2016 EDEN NEWMAN MD Ot M47.9 SPONDYLOSIS, UNSPECIFIED 01/11/2016 EDEN NEWMAN MD Ot N17.9 ACUTE KIDNEY FAILURE, UNSPECIFIED 01/11/2016 EDEN NEWMAN MD Ot N30.01 ACUTE CYSTITIS WITH HEMATURIA 01/11/2016 TRENT NAZARIO, EDEN Resendiz Ot R19.7 DIARRHEA, UNSPECIFIED 01/11/2016 EDEN NEWMAN MD Ot R51 HEADACHE 01/11/2016 EDEN NEWMAN MD Ot R65.20 SEVERE SEPSIS WITHOUT SEPTIC SHOCK 01/11/2016 EDEN NEWMAN MD Ot R74.8 ABNORMAL LEVELS OF OTHER SERUM ENZYMES 01/11/2016 TRENT NAZARIO, EDEN Resendiz Ot S00.83XA CONTUSION OF OTHER PART OF HEAD, INITIAL 01/11/2016 EDEN NEWMAN MD Ot W19.XXXA UNSPECIFIED FALL, INITIAL ENCOUNTER 01/11/2016 EDEN NEWMAN MD Ot Y92.[address] H[facility]ITAL PLACE 01/17/2016 Ot V76.12 OTH SCREEN MAMMO-MALIGN NEOPLASM OF [place] 01/17/2016 Ot V76.12 OTH SCREEN MAMMO-MALIGN NEOPLASM OF [place] 01/17/2016 Ot V72.84 EXAM PRE- OPERATIVE NOS 01/17/2016 Ot 787.91 DIARRHEA 01/17/2016 EDEN NEWMAN MD Ot V72.84 EXAM PRE-OPERATIVE NOS 01/17/2016 TRENT NAZARIO, EDEN Resendiz Ot 440.0 AORTIC ATHEROSCLEROSIS 01/17/2016 TRENT NAZARIO, EDEN Resendiz Ot 553.1 UMBILICAL HERNIA 01/17/2016 EDEN NEWMAN MD Ot 571.8 CHRONIC LIVER DIS NEC 01/17/2016 EDEN NEWMAN MD Ot 789.00 ABDOMINAL PAIN, UNSPECIFIED SITE 01/17/2016 TRENT NAZARIO, EDEN Resendiz Ot 790.5 ABN SERUM ENZY LEVEL NEC 01/17/2016 LAURA NAZARIO, GANESH Fitzpatrick Ot 722.52 LUMB/LUMBOSAC DISC DEGEN 01/17/2016 EDEN NEWMAN MD Ot V76.12 OTH SCREEN MAMMO-MALIGN NEOPLASM OF [place] 01/17/2016 GANESH SANCHEZ MD Ot 722.52 LUMB/LUMBOSAC DISC DEGEN 01/17/2016 GANESH SANCHEZ MD Ot 722.52 LUMB/LUMBOSAC DISC DEGEN 01/17/2016 LAURA NAZARIO, GANESH Fitzpatrick Ot V58.69 OTH MED,LT,CURRENT USE 01/17/2016 TRENT NAZARIO, EDEN Resendiz Ot R51 HEADACHE 01/17/2016 O'FRAGA, KAMLESH T BOILERS INSPECTOR Ot G47.10 HYPERSOMNIA, UNSPECIFIED 01/17/2016 O'FRAGA, KAMLESH T BOILERS INSPECTOR Ot H02.402 UNSPECIFIED PTOSIS OF LEFT EYELID 01/17/2016 O'FRAGA, KAMLESH T BOILERS INSPECTOR Ot M54.2 CERVICALGIA 01/17/2016 O'FRAGA, KAMLESH T BOILERS INSPECTOR Ot M79.609 PAIN IN UNSPECIFIED LIMB 01/17/2016 O'FRAGA, KAMLESH T BOILERS INSPECTOR Ot R00.0 TACHYCARDIA, UNSPECIFIED 01/17/2016 O'FRAGA, KAMLESH T BOILERS INSPECTOR Ot R20.2 PARESTHESIA OF SKIN 01/17/2016 O'FRAGA, KAMLESH T BOILERS INSPECTOR Ot R27.0 ATAXIA, UNSPECIFIED 01/17/2016 O'FRAGA, KAMLESH T BOILERS INSPECTOR Ot R29.2 ABNORMAL REFLEX 01/17/2016 O'FRAGA, KAMLESH T BOILERS INSPECTOR Ot R51 HEADACHE 01/17/2016 EDEN NEWMAN MD Ot R19.7 DIARRHEA, UNSPECIFIED 01/19/2016 O'FRAGA, KAMLESH T BOILERS INSPECTOR Ot G47.10 HYPERSOMNIA, UNSPECIFIED 01/19/2016 O'FRAGA, KAMLESH T BOILERS INSPECTOR Ot H02.402 UNSPECIFIED PTOSIS OF LEFT EYELID 01/19/2016 O'FRAGA, KAMLESH T BOILERS INSPECTOR Ot M54.2 CERVICALGIA 01/19/2016 O'FRAGA, KAMLESH T BOILERS INSPECTOR Ot M79.609 PAIN IN UNSPECIFIED LIMB 01/19/2016 O'FRAGA, KAMLESH T BOILERS INSPECTOR Ot R00.0 TACHYCARDIA, UNSPECIFIED 01/19/2016 O'FRAGA, KAMLESH T BOILERS INSPECTOR Ot R20.2 PARESTHESIA OF SKIN 01/19/2016 O'FRAGA, KAMLESH T BOILERS INSPECTOR Ot R27.0 ATAXIA, UNSPECIFIED 01/19/2016 O'FRAGA, KAMLESH T BOILERS INSPECTOR Ot R29.2 ABNORMAL REFLEX 01/19/2016 O'FRAGA, KAMLESH T BOILERS INSPECTOR Ot R51 HEADACHE 01/28/2016 O'FRAGA, KAMLESH T BOILERS INSPECTOR Ot G47.10 HYPERSOMNIA, UNSPECIFIED 01/28/2016 O'FRAGA, KAMLESH T BOILERS INSPECTOR Ot H02.402 UNSPECIFIED PTOSIS OF LEFT EYELID 01/28/2016 O'FRAGA, KAMLESH T BOILERS INSPECTOR Ot M54.2 CERVICALGIA 01/28/2016 O'FRAGA, KAMLESH T BOILERS INSPECTOR Ot M79.609 PAIN IN UNSPECIFIED LIMB 01/28/2016 O'FRAGA, KAMLESH T BOILERS INSPECTOR Ot R00.0 TACHYCARDIA, UNSPECIFIED 01/28/2016 O'FRAGA, KAMLESH T BOILERS INSPECTOR Ot R20.2 PARESTHESIA OF SKIN 01/28/2016 O'FRAGA, KAMLESH T BOILERS INSPECTOR Ot R27.0 ATAXIA, UNSPECIFIED 01/28/2016 O'FRAGA, KAMLESH T BOILERS INSPECTOR Ot R29.2 ABNORMAL REFLEX 01/28/2016 O'FRAGA, KAMLESH T BOILERS INSPECTOR Ot R51 HEADACHE 02/10/2016 OTHER, UNLISTED Ot M62.838 OTHER MUSCLE SPASM 03/15/2016 TRENT NAZARIO, EDEN Resendiz Ot R19.7 DIARRHEA, UNSPECIFIED 04/01/2016 TRENT NAZARIO, EDEN Resendiz Ot R19.7 DIARRHEA, UNSPECIFIED 05/02/2016 Ot 787.91 DIARRHEA 05/02/2016 EDEN NEWMAN MD Ot R19.7 DIARRHEA, UNSPECIFIED 05/02/2016 EDEN NEWMAN MD Ot K52.9 NONINFECTIVE GASTROENTERITIS AND COLITIS 05/02/2016 EEDN NEWMAN MD Ot R63.4 ABNORMAL WEIGHT LOSS 05/02/2016 EDEN NEWMAN MD Ot Z01.818 ENCOUNTER FOR OTHER PREPROCEDURAL EXAMIN 05/03/2016 EDEN NEWMAN MD Ot K52.9 NONINFECTIVE GASTROENTERITIS AND COLITIS 05/03/2016 EDEN NEWMAN MD Ot R63.4 ABNORMAL WEIGHT LOSS 05/03/2016 TRENT NAZARIO, EDEN Resendiz Ot Z01.818 ENCOUNTER FOR OTHER PREPROCEDURAL EXAMIN 05/04/2016 Ot V76.12 OTH SCREEN MAMMO-MALIGN NEOPLASM OF [place] 05/04/2016 Ot V76.12 OTH SCREEN MAMMO-MALIGN NEOPLASM OF [place] 05/04/2016 Ot V72.84 EXAM PRE- OPERATIVE NOS 05/04/2016 Ot 787.91 DIARRHEA 05/04/2016 EDEN NEWMAN MD Ot V72.84 EXAM PRE-OPERATIVE NOS 05/04/2016 EDEN NEWMAN MD Ot 440.0 AORTIC ATHEROSCLEROSIS 05/04/2016 EDEN NEWMAN MD Ot 553.1 UMBILICAL HERNIA 05/04/2016 EDEN NEWMAN MD Ot 571.8 CHRONIC LIVER DIS NEC 05/04/2016 EDEN NEWMAN MD Ot 789.00 ABDOMINAL PAIN, UNSPECIFIED SITE 05/04/2016 EDEN NEWMAN MD Ot 790.5 ABN SERUM ENZY LEVEL NEC 05/04/2016 GANESH SANCHEZ MD Ot 722.52 LUMB/LUMBOSAC DISC DEGEN 05/04/2016 EDEN NEWMAN MD Ot V76.12 OTH SCREEN MAMMO-MALIGN NEOPLASM OF [place] 05/04/2016 GANESH SANCHEZ MD Ot 722.52 LUMB/LUMBOSAC DISC DEGEN 05/04/2016 GANESH SANCHEZ MD, Ot 722.52 LUMB/LUMBOSAC DISC DEGEN 05/04/2016 GANESH SANCHEZ MD Ot V58.69 OTH MED,LT,CURRENT USE 05/04/2016 EDEN NEWMAN MD Ot R51 HEADACHE 05/04/2016 Pratima'FRAGA, KAMLESH T BOILERS INSPECTOR Ot G47.10 HYPERSOMNIA, UNSPECIFIED 05/04/2016 O'FRAGA, KAMLESH T BOILERS INSPECTOR Ot H02.402 UNSPECIFIED PTOSIS OF LEFT EYELID 05/04/2016 O'FRAGA, KAMLESH T BOILERS INSPECTOR Ot M54.2 CERVICALGIA 05/04/2016 O'FRAGA, KAMLESH T BOILERS INSPECTOR Ot M79.609 PAIN IN UNSPECIFIED LIMB 05/04/2016 O'FRAGA, KAMLESH T BOILERS INSPECTOR Ot R00.0 TACHYCARDIA, UNSPECIFIED 05/04/2016 O'FRAGA, KAMLESH T BOILERS INSPECTOR Ot R20.2 PARESTHESIA OF SKIN 05/04/2016 O'FRAGA, KAMLESH T BOILERS INSPECTOR Ot R27.0 ATAXIA, UNSPECIFIED 05/04/2016 O'FRAGA, KAMLESH T BOILERS INSPECTOR Ot R29.2 ABNORMAL REFLEX 05/04/2016 O'FRAGA, KAMLESH T BOILERS INSPECTOR Ot R51 HEADACHE 05/04/2016 TRENT NAZARIO, EDEN Resendiz Ot R19.7 DIARRHEA, UNSPECIFIED 05/04/2016 TRENT NAZARIO, EDEN Resendiz Ot K52.89 OTHER SPECIFIED NONINFECTIVE GASTROENTER 05/04/2016 TRENT NAZARIO, EDEN Resendiz Ot K64.0 FIRST DEGREE HEMORRHOIDS 05/08/2016 TRENT NAZARIO, EDEN Resendiz Ot K52.89 OTHER SPECIFIED NONINFECTIVE GASTROENTER 05/08/2016 TRENT NAZARIO, EDEN Resendiz Ot K64.0 FIRST DEGREE HEMORRHOIDS 07/30/2016 LEYDI [place] BOILERS INSPECTOR Ot G47.33 OBSTRUCTIVE SLEEP APNEA (ADULT) (PEDIATR 07/30/2016 INÉS LOUISINE E BOILERS INSPECTOR Ot G47.33 OBSTRUCTIVE SLEEP APNEA (ADULT) (PEDIATR 07/31/2016 HERIBERTO LEYDI E BOILERS INSPECTOR Ot G47.33 OBSTRUCTIVE SLEEP APNEA (ADULT) (PEDIATR 09/14/2016 INÉS LOUIS[place] E BOILERS INSPECTOR Ot G47.10 HYPERSOMNIA, UNSPECIFIED 09/14/2016 INÉS [place]OU[place]INE E BOILERS INSPECTOR Ot G47.33 OBSTRUCTIVE SLEEP APNEA (ADULT) (PEDIATR 09/14/2016 HERIBERTO LEYDI E BOILERS INSPECTOR Ot G47.10 HYPERSOMNIA, UNSPECIFIED 09/14/2016 INÉS [place]OUIS[place] E BOILERS INSPECTOR Ot G47.33 OBSTRUCTIVE SLEEP APNEA (ADULT) (PEDIATR 09/15/2016 HERIEBRTO, LEYDI E BOILERS INSPECTOR Ot G47.10 HYPERSOMNIA, UNSPECIFIED 09/15/2016 HERIBERTOINÉSLEYDI E BOILERS INSPECTOR Ot G47.33 OBSTRUCTIVE SLEEP APNEA (ADULT) (PEDIATR 09/15/2016 HERIBERTO LEYDI E BOILERS INSPECTOR Ot G47.34 IDIO SLEEP RELATED NONOBSTRUCTIVE ALVEOL 09/17/2016 HERIBERTO LEYDI E BOILERS INSPECTOR Ot G47.10 HYPERSOMNIA, UNSPECIFIED 09/17/2016 HERIBERTOINÉSLEYDI E BOILERS INSPECTOR Ot G47.33 OBSTRUCTIVE SLEEP APNEA (ADULT) (PEDIATR 09/17/2016 HERIBERTO LEYDI E BOILERS INSPECTOR Ot G47.34 IDIO SLEEP RELATED NONOBSTRUCTIVE ALVEOL 10/22/2016 JANAY BUI DO M Ot R06.00 DYSPNEA, UNSPECIFIED 10/23/2016 Ot V76.12 OTH SCREEN MAMMO-MALIGN NEOPLASM OF [place] 10/23/2016 Ot V72.84 EXAM PRE- OPERATIVE NOS 10/23/2016 Ot 787.91 DIARRHEA 10/23/2016 TRENT NAZARIO, EDEN Resendiz Ot V72.84 EXAM PRE-OPERATIVE NOS 10/23/2016 TRENT NAZARIO, EDEN Resendiz Ot 440.0 AORTIC ATHEROSCLEROSIS 10/23/2016 EDEN NEWMAN MD Ot 553.1 UMBILICAL HERNIA 10/23/2016 EDEN NEWMAN MD Ot 571.8 CHRONIC LIVER DIS NEC 10/23/2016 TRENT NAZARIO, EDEN Resendiz Ot 789.00 ABDOMINAL PAIN, UNSPECIFIED SITE 10/23/2016 EDEN NEWMAN MD Ot 790.5 ABN SERUM ENZY LEVEL NEC 10/23/2016 GANESH SANCHEZ MD Ot 722.52 LUMB/LUMBOSAC DISC DEGEN 10/23/2016 EDEN NEWMAN MD Ot V76.12 OTH SCREEN MAMMO-MALIGN NEOPLASM OF [place] 10/23/2016 GANESH SANCHEZ MD Ot 722.52 LUMB/LUMBOSAC DISC DEGEN 10/23/2016 GANESH SANCHEZ MD Ot 722.52 LUMB/LUMBOSAC DISC DEGEN 10/23/2016 GANESH SANCHEZ MD Ot V58.69 OTH MED,LT,CURRENT USE 10/23/2016 TRENT NAZARIO, EDEN Resendiz Ot R51 HEADACHE 10/23/2016 Pratima'KAMLESH FRAGA APRN Ot G47.10 HYPERSOMNIA, UNSPECIFIED 10/23/2016 O'FRAGA, KAMLESH T BOILERS INSPECTOR Ot H02.402 UNSPECIFIED PTOSIS OF LEFT EYELID 10/23/2016 O'FRAGA, KAMLESH T BOILERS INSPECTOR Ot M54.2 CERVICALGIA 10/23/2016 O'FRAGA, KAMLESH T BOILERS INSPECTOR Ot M79.609 PAIN IN UNSPECIFIED LIMB 10/23/2016 O'FRAGA, KAMLESH T BOILERS INSPECTOR Ot R00.0 TACHYCARDIA, UNSPECIFIED 10/23/2016 O'FRAGA, KAMLEHS T BOILERS INSPECTOR Ot R20.2 PARESTHESIA OF SKIN 10/23/2016 O'FRAGA, KAMLESH T BOILERS INSPECTOR Ot R27.0 ATAXIA, UNSPECIFIED 10/23/2016 O'FRAGA, KAMLESH T BOILERS INSPECTOR Ot R29.2 ABNORMAL REFLEX 10/23/2016 O'FRAGA, KAMLESH T BOILERS INSPECTOR Ot R51 HEADACHE 10/23/2016 TRENT NAZARIO, EDEN Resendiz Ot R19.7 DIARRHEA, UNSPECIFIED 10/23/2016 JANAY BUI DO Ot R06.00 DYSPNEA, UNSPECIFIED 10/25/2016 Ot V76.12 OTH SCREEN MAMMO-MALIGN NEOPLASM OF DIVYA 10/25/2016 Ot V72.84 EXAM PRE- OPERATIVE NOS 10/25/2016 Ot 787.91 DIARRHEA 10/25/2016 TRENT NAZARIO, EDEN Resendiz Ot V72.84 EXAM PRE-OPERATIVE NOS 10/25/2016 TRENT NAZARIO, EDEN Resendiz Ot 440.0 AORTIC ATHEROSCLEROSIS 10/25/2016 TRENT NAZARIO, EDEN Resendiz Ot 553.1 UMBILICAL HERNIA 10/25/2016 TRENT NAZARIO, EDEN Resendiz Ot 571.8 CHRONIC LIVER DIS NEC 10/25/2016 TRENT NAZARIO, EDEN Resendiz Ot 789.00 ABDOMINAL PAIN, UNSPECIFIED SITE 10/25/2016 EDEN NEWMAN MD Ot 790.5 ABN SERUM ENZY LEVEL NEC 10/25/2016 GANESH SANCHEZ MD Ot 722.52 LUMB/LUMBOSAC DISC DEGEN 10/25/2016 EDEN NEWMAN MD Ot V76.12 OTH SCREEN MAMMO-MALIGN NEOPLASM OF DIVYA 10/25/2016 GANESH SANCHEZ MD Ot 722.52 LUMB/LUMBOSAC DISC DEGEN 10/25/2016 GANESH SANCHEZ MD Ot 722.52 LUMB/LUMBOSAC DISC DEGEN 10/25/2016 GANESH SANCHEZ MD J Ot V58.69 OT MED,LT,CURRENT USE 10/25/2016 TRENT NAZARIO, EDEN Resendiz Ot R51 HEADACHE 10/25/2016 O'FRAGA, KAMLESH T BOILERS INSPECTOR Ot G47.10 HYPERSOMNIA, UNSPECIFIED 10/25/2016 O'FRAGA, KAMLESH T BOILERS INSPECTOR Ot H02.402 UNSPECIFIED PTOSIS OF LEFT EYELID 10/25/2016 O'FRAGA, KAMLESH T BOILERS INSPECTOR Ot M54.2 CERVICALGIA 10/25/2016 O'FRAGA, KAMLESH T BOILERS INSPECTOR Ot M79.609 PAIN IN UNSPECIFIED LIMB 10/25/2016 O'FRAGA, KAMLESH T BOILERS INSPECTOR Ot R00.0 TACHYCARDIA, UNSPECIFIED 10/25/2016 O'FRAGA, KAMLESH T BOILERS INSPECTOR Ot R20.2 PARESTHESIA OF SKIN 10/25/2016 O'FRAGA, KAMLESH T BOILERS INSPECTOR Ot R27.0 ATAXIA, UNSPECIFIED 10/25/2016 O'FRAGA, KAMLESH T BOILERS INSPECTOR Ot R29.2 ABNORMAL REFLEX 10/25/2016 O'FRAGA, KAMLESH T BOILERS INSPECTOR Ot R51 HEADACHE 10/25/2016 TRENT NAZARIO, EDEN Resendiz Ot R19.7 DIARRHEA, UNSPECIFIED 10/25/2016 RAMYAJANAY CEDEÑO DO Ot R06.00 DYSPNEA, UNSPECIFIED 11/09/2016 RAMYAJANAY CEDEÑO DO Ot R06.00 DYSPNEA, UNSPECIFIED 12/06/2016 RAMYAJANAY CEDEÑO DO Ot R06.00 DYSPNEA, UNSPECIFIED 01/28/2017 Ot V76.12 OTH SCREEN MAMMO-MALIGN NEOPLASM OF DIVYA 01/28/2017 Ot V72.84 EXAM PRE- OPERATIVE NOS 01/28/2017 Ot 787.91 DIARRHEA 01/28/2017 EDEN NEWMAN MD Ot V72.84 EXAM PRE-OPERATIVE NOS 01/28/2017 TRENT NAZARIO, EDEN Resendiz Ot 440.0 AORTIC ATHEROSCLEROSIS 01/28/2017 EDEN NEWMAN MD Ot 553.1 UMBILICAL HERNIA 01/28/2017 EDEN NEWMAN MD Ot 571.8 CHRONIC LIVER DIS NEC 01/28/2017 EDEN NEWMAN MD Ot 789.00 ABDOMINAL PAIN, UNSPECIFIED SITE 01/28/2017 EDEN NEWMAN MD Ot 790.5 ABN SERUM ENZY LEVEL NEC 01/28/2017 GANESH SANCHEZ MD Ot 722.52 LUMB/LUMBOSAC DISC DEGEN 01/28/2017 EDEN NEWMAN MD Ot V76.12 OTH SCREEN MAMMO-MALIGN NEOPLASM OF DIVYA 01/28/2017 GANESH SANCHEZ MD Ot 722.52 LUMB/LUMBOSAC DISC DEGEN 01/28/2017 GANESH SANCHEZ MD Ot 722.52 LUMB/LUMBOSAC DISC DEGEN 01/28/2017 GANESH SANCHEZ MD Ot V58.69 OTH MED,LT,CURRENT USE 01/28/2017 TRENT NAZARIO, EDEN Resendiz Ot R51 HEADACHE 01/28/2017 O'FRAGA, KAMLESH T BOILERS INSPECTOR Ot G47.10 HYPERSOMNIA, UNSPECIFIED 01/28/2017 O'FRAGA, KAMLESH T BOILERS INSPECTOR Ot H02.402 UNSPECIFIED PTOSIS OF LEFT EYELID 01/28/2017 O'FRAGA, KAMLESH T BOILERS INSPECTOR Ot M54.2 CERVICALGIA 01/28/2017 O'FRAGA, KAMLESH T BOILERS INSPECTOR Ot M79.609 PAIN IN UNSPECIFIED LIMB 01/28/2017 O'FRAGA, KAMLESH T BOILERS INSPECTOR Ot R00.0 TACHYCARDIA, UNSPECIFIED 01/28/2017 O'FRAGA, KAMLESH T BOILERS INSPECTOR Ot R20.2 PARESTHESIA OF SKIN 01/28/2017 O'FRAGA, KAMLESH T BOILERS INSPECTOR Ot R27.0 ATAXIA, UNSPECIFIED 01/28/2017 O'FRAGA, KAMLESH T BOILERS INSPECTOR Ot R29.2 ABNORMAL REFLEX 01/28/2017 O'FRAGA, KAMLESH T BOILERS INSPECTOR Ot R51 HEADACHE 01/28/2017 EDEN NEWMAN MD Ot R19.7 DIARRHEA, UNSPECIFIED 01/28/2017 JANAY BUI DO M Ot R06.00 DYSPNEA, UNSPECIFIED 01/30/2017 LEYDI [place] BOILERS INSPECTOR Ot G47.34 IDIO SLEEP RELATED NONOBSTRUCTIVE ALVEOL 01/30/2017 LEYDI [place] BOILERS INSPECTOR Ot J98.4 OTHER DISORDERS OF LUNG 03/18/2017 LE[place]DI [place] BOILERS INSPECTOR Ot G47.34 IDIO SLEEP RELATED NONOBSTRUCTIVE ALVEOL 03/18/2017 [place] BOILERS INSPECTOR Ot J98.4 OTHER DISORDERS OF LUNG 04/08/2017 LEYDI [place] E BOILERS INSPECTOR Ot G47.34 IDIO SLEEP RELATED NONOBSTRUCTIVE ALVEOL 04/08/2017 INÉS LOUISINE E BOILERS INSPECTOR Ot J98.4 OTHER DISORDERS OF LUNG 04/19/2017 TRENT NAZARIO, EDEN Resendiz Ot R30.0 DYSURIA 04/28/2017 INÉS [place] E BOILERS INSPECTOR Ot G47.34 IDIO SLEEP RELATED NONOBSTRUCTIVE ALVEOL 04/28/2017 LE[place]DI [place] E BOILERS INSPECTOR Ot J98.4 OTHER DISORDERS OF LUNG 05/08/2017 INÉS [place]IS[place] E BOILERS INSPECTOR Ot G47.34 IDIO SLEEP RELATED NONOBSTRUCTIVE ALVEOL 05/08/2017 HERIBERTOINÉS MANLEYINE E BOILERS INSPECTOR Ot J98.4 OTHER DISORDERS OF LUNG 05/25/2017 LE[place] E BOILERS INSPECTOR Ot G47.34 IDIO SLEEP RELATED NONOBSTRUCTIVE ALVEOL 05/25/2017 [place] BOIL[employer] INSPECTOR Ot J98.4 OTHER DISORDERS OF LUNG 05/28/2017 LE[place] BOIL[employer] INSPECTOR Ot G47.34 IDIO SLEEP RELATED NONOBSTRUCTIVE ALVEOL 05/28/2017 HERIBERTOINÉS MANLEYINE E BOILERS INSPECTOR Ot J98.4 OTHER DISORDERS OF LUNG 05/28/2017 INÉS [place]IS[place] E BOILERS INSPECTOR Ot G47.34 IDIO SLEEP RELATED NONOBSTRUCTIVE ALVEOL 05/28/2017 INÉS [place]IS[place] E BOILERS INSPECTOR Ot J98.4 OTHER DISORDERS OF LUNG 05/29/2017 LEYDI [place] E BOILERS INSPECTOR Ot G47.34 IDIO SLEEP RELATED NONOBSTRUCTIVE ALVEOL 05/29/2017 LEYDI LOUIS BOILERS INSPECTOR Ot J98.4 OTHER DISORDERS OF LUNG 07/03/2017 HERIBERTOINÉS MANLEYINE E BOILERS INSPECTOR Ot G47.34 IDIO SLEEP RELATED NONOBSTRUCTIVE ALVEOL 07/03/2017 HERIBERTOINÉS MANLEYINE E BOILERS INSPECTOR Ot J98.4 OTHER DISORDERS OF LUNG 07/23/2017 HERIBERTOINÉS MANLEYINE E BOILERS INSPECTOR Ot G47.34 IDIO SLEEP RELATED NONOBSTRUCTIVE ALVEOL 07/23/2017 HERIBERTOINÉS MANLEYINE E BOILERS INSPECTOR Ot J98.4 OTHER DISORDERS OF LUNG 08/12/2017 HERIBERTOINÉS MANLEYINE E BOILERS INSPECTOR Ot G47.34 IDIO SLEEP RELATED NONOBSTRUCTIVE ALVEOL 08/12/2017 LEYDI LOUIS BOILERS INSPECTOR Ot J98.4 OTHER DISORDERS OF LUNG 08/26/2017 LEYDI LOUIS BOILERS INSPECTOR Ot G47.34 IDIO SLEEP RELATED NONOBSTRUCTIVE ALVEOL 08/26/2017 LEYDI LOUIS BOILERS INSPECTOR Ot J98.4 OTHER DISORDERS OF LUNG 01/27/2018 TRENT NAZARIO, EDEN Resendiz Ot V72.84 EXAM PRE-OPERATIVE NOS 01/27/2018 TRENT NAZARIO, EDEN Resendiz Ot 440.0 AORTIC ATHEROSCLEROSIS 01/27/2018 EDEN NEWMAN MD Ot 553.1 UMBILICAL HERNIA 01/27/2018 EDEN NEWMAN MD Ot 571.8 CHRONIC LIVER DIS NEC 01/27/2018 TRENT NAZARIO, EDEN Resendiz Ot 789.00 ABDOMINAL PAIN, UNSPECIFIED SITE 01/27/2018 EDEN NEWMAN MD Ot 790.5 ABN SERUM ENZY LEVEL NEC 01/27/2018 GANESH SANCHEZ MD Ot 722.52 LUMB/LUMBOSAC DISC DEGEN 01/27/2018 EDEN NEWMAN MD Ot V76.12 OTH SCREEN MAMMO-MALIGN NEOPLASM OF DIVYA 01/27/2018 GANESH SANCHEZ MD Ot 722.52 LUMB/LUMBOSAC DISC DEGEN 01/27/2018 GANESH SANCHEZ MD, Ot 722.52 LUMB/LUMBOSAC DISC DEGEN 01/27/2018 GANESH SANCHEZ MD Ot V58.69 OTH MED,LT,CURRENT USE 01/27/2018 EDEN NEWMAN MD Ot R51 HEADACHE 01/27/2018 O'FRAGA, KAMLESH T BOILERS INSPECTOR Ot G47.10 HYPERSOMNIA, UNSPECIFIED 01/27/2018 O'FRAGA, KAMLESH T BOILERS INSPECTOR Ot H02.402 UNSPECIFIED PTOSIS OF LEFT EYELID 01/27/2018 O'FRAGA, KAMLESH T BOILERS INSPECTOR Ot M54.2 CERVICALGIA 01/27/2018 O'FRAGA, KAMLESH T BOILERS INSPECTOR Ot M79.609 PAIN IN UNSPECIFIED LIMB 01/27/2018 O'FRAGA, KAMLESH T BOILERS INSPECTOR Ot R00.0 TACHYCARDIA, UNSPECIFIED 01/27/2018 O'FRAGA, KAMLESH T BOILERS INSPECTOR Ot R20.2 PARESTHESIA OF SKIN 01/27/2018 O'FRAGA, KAMLESH T BOILERS INSPECTOR Ot R27.0 ATAXIA, UNSPECIFIED 01/27/2018 O'FRAGA, KAMLESH T BOILERS INSPECTOR Ot R29.2 ABNORMAL REFLEX 01/27/2018 O'FRAGA, KAMLESH T BOILERS INSPECTOR Ot R51 HEADACHE 01/27/2018 TRENT NAZARIO, EDEN Resendiz Ot R19.7 DIARRHEA, UNSPECIFIED 01/27/2018 JANAY BUI DO M Ot R06.00 DYSPNEA, UNSPECIFIED 01/27/2018 TRENT NAZARIO, EDEN Resendiz Ot R30.0 DYSURIA 01/27/2018 LEYDI LOUIS APRN Ot G47.34 IDIO SLEEP RELATED NONOBSTRUCTIVE ALVEOL 01/27/2018 LEYDI LOUIS APRN Ot J98.4 OTHER DISORDERS OF LUNG 02/02/2018 TRENT NAZARIO, EDEN Resendiz Ot V72.84 EXAM PRE-OPERATIVE NOS 02/02/2018 TRENT NAZARIO, EDEN Resendiz Ot 440.0 AORTIC ATHEROSCLEROSIS 02/02/2018 EDEN NEWMAN MD Ot 553.1 UMBILICAL HERNIA 02/02/2018 EDEN NEWMAN MD Ot 571.8 CHRONIC LIVER DIS NEC 02/02/2018 TRENT NAZARIO, EDEN Resendiz Ot 789.00 ABDOMINAL PAIN, UNSPECIFIED SITE 02/02/2018 TRENT NAZARIO, EDEN Resendiz Ot 790.5 ABN SERUM ENZY LEVEL NEC 02/02/2018 LAURA NAZARIO, GANESH Fitzpatrick Ot 722.52 LUMB/LUMBOSAC DISC DEGEN 02/02/2018 EDEN NEWMAN MD Ot V76.12 OTH SCREEN MAMMO-MALIGN NEOPLASM OF DIVYA 02/02/2018 GANESH SANCHEZ MD Ot 722.52 LUMB/LUMBOSAC DISC DEGEN 02/02/2018 GANESH SANCHEZ MD Ot 722.52 LUMB/LUMBOSAC DISC DEGEN 02/02/2018 GANESH SANCHEZ MD Ot V58.69 OTH MED,LT,CURRENT USE 02/02/2018 TRENT NAZARIO, EDEN Resendiz Ot R51 HEADACHE 02/02/2018 O'FRAGATEDKAMLESH T BOILERS INSPECTOR Ot G47.10 HYPERSOMNIA, UNSPECIFIED 02/02/2018 O'FRAGA KAMLESH T BOILERS INSPECTOR Ot H02.402 UNSPECIFIED PTOSIS OF LEFT EYELID 02/02/2018 O'FRAGA KAMLESH T BOILERS INSPECTOR Ot M54.2 CERVICALGIA 02/02/2018 O'FRAGA, KAMLESH T BOILERS INSPECTOR Ot M79.609 PAIN IN UNSPECIFIED LIMB 02/02/2018 O'FRAGA, KAMLESH T BOILERS INSPECTOR Ot R00.0 TACHYCARDIA, UNSPECIFIED 02/02/2018 O'FRAGA, KAMLESH T BOILERS INSPECTOR Ot R20.2 PARESTHESIA OF SKIN 02/02/2018 O'FRAGA, KAMLESH T BOILERS INSPECTOR Ot R27.0 ATAXIA, UNSPECIFIED 02/02/2018 O'FRAGA, KAMLESH T BOILERS INSPECTOR Ot R29.2 ABNORMAL REFLEX 02/02/2018 O'FRAGA, KAMLESH T BOILERS INSPECTOR Ot R51 HEADACHE 02/02/2018 TRENT NAZARIO, EDEN Resendiz Ot R19.7 DIARRHEA, UNSPECIFIED 02/02/2018 JANAY BUI DO Ot R06.00 DYSPNEA, UNSPECIFIED 02/02/2018 TRENT NAZARIO, EDEN Resendiz Ot R30.0 DYSURIA 02/02/2018 LEYDI LOUIS BOILERS INSPECTOR Ot G47.34 IDIO SLEEP RELATED NONOBSTRUCTIVE ALVEOL 02/02/2018 LEYDI LOUIS BOILERS INSPECTOR Ot J98.4 OTHER DISORDERS OF LUNG 02/02/2018 DANIKA NICKIE HAND UMBRELLA TIPPER Ot E11.9 TYPE 2 DIABETES MELLITUS WITHOUT COMPLIC 02/02/2018 DANIKA, NICKIE HAND UMBRELLA TIPPER Ot E78.00 PURE HYPERCHOLESTEROLEMIA, UNSPECIFIED 02/02/2018 DANIKA, NICKIE HAND UMBRELLA TIPPER Ot G43.909 MIGRAINE, UNSP, NOT INTRACTABLE, WITHOUT 02/02/2018 DANIKA, NICKIE HAND UMBRELLA TIPPER Ot I10 ESSENTIAL (PRIMARY) HYPERTENSION 02/02/2018 DANIKA, NICKIE HAND UMBRELLA TIPPER Ot I25.2 OLD MYOCARDIAL INFARCTION 02/02/2018 DANIKA, NICKIE HAND UMBRELLA TIPPER Ot M79.661 PAIN IN RIGHT LOWER LEG 02/02/2018 DANIKA, NICKIE HAND UMBRELLA TIPPER Ot Z82.49 FAMILY HX OF ISCHEM HEART DIS AND OTH DI 02/02/2018 DANIKA NICKIE HAND UMBRELLA TIPPER Ot Z88.0 ALLERGY STATUS TO PENICILLIN 02/02/2018 DANIKA NICKIE HAND UMBRELLA TIPPER Ot Z90.710 ACQUIRED ABSENCE OF BOTH CERVIX AND UTER 02/02/2018 TRENT NAZARIO, EDEN Resendiz Ot V72.84 EXAM PRE-OPERATIVE NOS 02/02/2018 TRENT NAZARIO, EDEN Resendiz Ot 440.0 AORTIC ATHEROSCLEROSIS 02/02/2018 EDEN NEWMAN MD Ot 553.1 UMBILICAL HERNIA 02/02/2018 TRENT NAZARIO, EDEN Resendiz Ot 571.8 CHRONIC LIVER DIS NEC 02/02/2018 TRENT NAZARIO, EDEN Resendiz Ot 789.00 ABDOMINAL PAIN, UNSPECIFIED SITE 02/02/2018 TRENT NAZARIO, EDEN Resendiz Ot 790.5 ABN SERUM ENZY LEVEL NEC 02/02/2018 LAURA NAZARIO, GANESH Fitzpatrick Ot 722.52 LUMB/LUMBOSAC DISC DEGEN 02/02/2018 TRENT NAZARIO, EDEN Resendiz Ot V76.12 OTH SCREEN MAMMO-MALIGN NEOPLASM OF DIVYA 02/02/2018 LAURA NAZARIO, GANESH Fitzpatrick Ot 722.52 LUMB/LUMBOSAC DISC DEGEN 02/02/2018 GANESH SANCHEZ MD Ot 722.52 LUMB/LUMBOSAC DISC DEGEN 02/02/2018 LAURA NAZARIO, GANESH Fitzpatrick Ot V58.69 OTH MED,LT,CURRENT USE 02/02/2018 TRENT NAZARIO, EDEN Resendiz Ot R51 HEADACHE 02/02/2018 O'FRAGA, KAMLESH T BOILERS INSPECTOR Ot G47.10 HYPERSOMNIA, UNSPECIFIED 02/02/2018 O'FRAGA, KAMLESH T BOILERS INSPECTOR Ot H02.402 UNSPECIFIED PTOSIS OF LEFT EYELID 02/02/2018 O'FRAGA, KAMLESH T BOILERS INSPECTOR Ot M54.2 CERVICALGIA 02/02/2018 O'FRAGA, KAMLESH T BOILERS INSPECTOR Ot M79.609 PAIN IN UNSPECIFIED LIMB 02/02/2018 O'FRAGA, KAMLESH T BOILERS INSPECTOR Ot R00.0 TACHYCARDIA, UNSPECIFIED 02/02/2018 O'FRAGA, KAMLESH T BOILERS INSPECTOR Ot R20.2 PARESTHESIA OF SKIN 02/02/2018 O'FRAGA, KAMLESH T BOILERS INSPECTOR Ot R27.0 ATAXIA, UNSPECIFIED 02/02/2018 O'FRAGA, KAMLESH T BOILERS INSPECTOR Ot R29.2 ABNORMAL REFLEX 02/02/2018 O'FRAGA, KAMLESH T BOILERS INSPECTOR Ot R51 HEADACHE 02/02/2018 TRENT NAZARIO, EDEN Resendiz Ot R19.7 DIARRHEA, UNSPECIFIED 02/02/2018 JANAY BUI DO M Ot R06.00 DYSPNEA, UNSPECIFIED 02/02/2018 TRENT NAZARIO, EDEN Resendiz Ot R30.0 DYSURIA 02/02/2018 LEYDI LOUIS APRN Ot G47.34 IDIO SLEEP RELATED NONOBSTRUCTIVE ALVEOL 02/02/2018 LEYDI LOUIS BOILERS INSPECTOR Ot J98.4 OTHER DISORDERS OF LUNG 02/04/2018 NICKIE GARNICAP Ot E11.9 TYPE 2 DIABETES MELLITUS WITHOUT COMPLIC 02/04/2018 NICKIE GARNICA HAND UMBRELLA TIPPER Ot E78.00 PURE HYPERCHOLESTEROLEMIA, UNSPECIFIED 02/04/2018 DANIKA NICKIE HAND UMBRELLA TIPPER Ot G43.909 MIGRAINE, UNSP, NOT INTRACTABLE, WITHOUT 02/04/2018 DANIKA, NICKIE HAND UMBRELLA TIPPER Ot I10 ESSENTIAL (PRIMARY) HYPERTENSION 02/04/2018 DANIKA NICKIE HAND UMBRELLA TIPPER Ot I25.2 OLD MYOCARDIAL INFARCTION 02/04/2018 NICKIE GARNICA HAND UMBRELLA TIPPER Ot M79.661 PAIN IN RIGHT LOWER LEG 02/04/2018 DANIKA NICKIE HAND UMBRELLA TIPPER Ot Z82.49 FAMILY HX OF ISCHEM HEART DIS AND OTH DI 02/04/2018 NICKIE GARNICA HAND UMBRELLA TIPPER Ot Z88.0 ALLERGY STATUS TO PENICILLIN 02/04/2018 DANIKA NICKIE HAND UMBRELLA TIPPER Ot Z90.710 ACQUIRED ABSENCE OF BOTH CERVIX AND UTER 02/10/2018 TRENT NAZARIO, EDEN Resendiz Ot V72.84 EXAM PRE-OPERATIVE NOS 02/10/2018 TRENT NAZARIO, EDEN Resendiz Ot 440.0 AORTIC ATHEROSCLEROSIS 02/10/2018 EDEN NEWMAN MD Ot 553.1 UMBILICAL HERNIA 02/10/2018 EDEN NEWMAN MD Ot 571.8 CHRONIC LIVER DIS NEC 02/10/2018 EDEN NEWMAN MD Ot 789.00 ABDOMINAL PAIN, UNSPECIFIED SITE 02/10/2018 EDEN NEWMAN MD Ot 790.5 ABN SERUM ENZY LEVEL NEC 02/10/2018 GANESH SANCHEZ MD Ot 722.52 LUMB/LUMBOSAC DISC DEGEN 02/10/2018 EDEN NEWMAN MD Ot V76.12 OTH SCREEN MAMMO-MALIGN NEOPLASM OF DIVYA 02/10/2018 GANESH SANCHEZ MD Ot 722.52 LUMB/LUMBOSAC DISC DEGEN 02/10/2018 GANESH SANCHEZ MD Ot 722.52 LUMB/LUMBOSAC DISC DEGEN 02/10/2018 GANESH SANCHEZ MD Ot V58.69 OTH MED,LT,CURRENT USE 02/10/2018 EDEN NEWMAN MD Ot R51 HEADACHE 02/10/2018 O'FRAGA, KAMLESH T BOILERS INSPECTOR Ot G47.10 HYPERSOMNIA, UNSPECIFIED 02/10/2018 O'FRAGA, KAMLESH T BOILERS INSPECTOR Ot H02.402 UNSPECIFIED PTOSIS OF LEFT EYELID 02/10/2018 O'FRAGA, KAMLESH T BOILERS INSPECTOR Ot M54.2 CERVICALGIA 02/10/2018 O'FRAGA, KAMLESH T BOILERS INSPECTOR Ot M79.609 PAIN IN UNSPECIFIED LIMB 02/10/2018 O'FRAGA, KAMLESH T BOILERS INSPECTOR Ot R00.0 TACHYCARDIA, UNSPECIFIED 02/10/2018 O'FRAGA, KAMLESH T BOILERS INSPECTOR Ot R20.2 PARESTHESIA OF SKIN 02/10/2018 O'FRAGA, KAMLESH T BOILERS INSPECTOR Ot R27.0 ATAXIA, UNSPECIFIED 02/10/2018 O'FRAGA, KAMLESH T BOILERS INSPECTOR Ot R29.2 ABNORMAL REFLEX 02/10/2018 O'FRAGA, KAMLESH T BOILERS INSPECTOR Ot R51 HEADACHE 02/10/2018 TRENT NAZARIO, EDEN Resendiz Ot R19.7 DIARRHEA, UNSPECIFIED 02/10/2018 JANAY BUI DO Ot R06.00 DYSPNEA, UNSPECIFIED 02/10/2018 EDEN NEWMAN MD Ot R30.0 DYSURIA 02/10/2018 LEYDI LOUIS APRN Ot G47.34 IDIO SLEEP RELATED NONOBSTRUCTIVE ALVEOL 02/10/2018 LEYDI LOUIS APRN Ot J98.4 OTHER DISORDERS OF LUNG 05/16/2018 EDEN NEWMAN MD Ot E11.9 TYPE 2 DIABETES MELLITUS WITHOUT COMPLIC 05/16/2018 EDEN NEWMAN MD Ot R29.6 REPEATED FALLS 05/16/2018 EDEN NEWMAN MD Ot R53.1 WEAKNESS 05/16/2018 EDEN NEWMAN MD Ot V72.84 EXAM PRE-OPERATIVE NOS 05/16/2018 EDEN NEWMAN MD Ot 440.0 AORTIC ATHEROSCLEROSIS 05/16/2018 EDEN NEWMAN MD Ot 553.1 UMBILICAL HERNIA 05/16/2018 EDEN NEWMAN MD Ot 571.8 CHRONIC LIVER DIS NEC 05/16/2018 EDEN NEWMAN MD Ot 789.00 ABDOMINAL PAIN, UNSPECIFIED SITE 05/16/2018 EDEN NEWMAN MD Ot 790.5 ABN SERUM ENZY LEVEL NEC 05/16/2018 GANESH SANCHEZ MD Ot 722.52 LUMB/LUMBOSAC DISC DEGEN 05/16/2018 TRENT NAZARIO, EDEN Resendiz Ot V76.12 OTH SCREEN MAMMO-MALIGN NEOPLASM OF DIVYA 05/16/2018 GANESH SANCHEZ MD Ot 722.52 LUMB/LUMBOSAC DISC DEGEN 05/16/2018 GANESH SANCHEZ MD Ot 722.52 LUMB/LUMBOSAC DISC DEGEN 05/16/2018 GANESH SANCHEZ MD Ot V58.69 OTH MED,LT,CURRENT USE 05/16/2018 TRENT NAZARIO, EDEN Resendiz Ot R51 HEADACHE 05/16/2018 O'FRAGA, KAMLESH T BOILERS INSPECTOR Ot G47.10 HYPERSOMNIA, UNSPECIFIED 05/16/2018 O'FRAGA, KAMLESH T BOILERS INSPECTOR Ot H02.402 UNSPECIFIED PTOSIS OF LEFT EYELID 05/16/2018 O'FRAGA, KAMLESH T BOILERS INSPECTOR Ot M54.2 CERVICALGIA 05/16/2018 O'FRAGA, KAMLESH T BOILERS INSPECTOR Ot M79.609 PAIN IN UNSPECIFIED LIMB 05/16/2018 O'FRAGA, KAMLESH T BOILERS INSPECTOR Ot R00.0 TACHYCARDIA, UNSPECIFIED 05/16/2018 O'FRAGA, KAMLESH T BOILERS INSPECTOR Ot R20.2 PARESTHESIA OF SKIN 05/16/2018 O'FRAGA, KAMLESH T BOILERS INSPECTOR Ot R27.0 ATAXIA, UNSPECIFIED 05/16/2018 O'FRAGA, KAMLESH T BOILERS INSPECTOR Ot R29.2 ABNORMAL REFLEX 05/16/2018 O'FRAGA, KAMLESH T BOILERS INSPECTOR Ot R51 HEADACHE 05/16/2018 TRENT NAZARIO, EDEN Resendiz Ot R19.7 DIARRHEA, UNSPECIFIED 05/16/2018 JANAY BUI DO M Ot R06.00 DYSPNEA, UNSPECIFIED 05/16/2018 EDEN NEWMAN MD Ot R30.0 DYSURIA 05/16/2018 LEYDI LOUIS APRN Ot G47.34 IDIO SLEEP RELATED NONOBSTRUCTIVE ALVEOL 05/16/2018 LEYDI LOUIS APRN Ot J98.4 OTHER DISORDERS OF LUNG 05/16/2018 TRENT NAZARIO, EDEN Resendiz Ot E11.9 TYPE 2 DIABETES MELLITUS WITHOUT COMPLIC 05/16/2018 TRENT NAZARIO, EDEN Resendiz Ot R29.6 REPEATED FALLS 05/16/2018 TRENT NAZARIO, EDEN Resendiz Ot R53.1 WEAKNESS 05/26/2018 TRENT NAZARIO, EDEN Resendiz Ot E11.9 TYPE 2 DIABETES MELLITUS WITHOUT COMPLIC 05/26/2018 TRENT NAZARIO, EDEN Resendiz Ot R29.6 REPEATED FALLS 05/26/2018 TRENT NAZARIO, EDEN Resendiz Ot R53.1 WEAKNESS 05/26/2018 TRENT NAZARIO, EDEN Resendiz Ot E11.9 TYPE 2 DIABETES MELLITUS WITHOUT COMPLIC 05/26/2018 TRENT NAZARIO, EDEN Resendiz Ot R29.6 REPEATED FALLS 05/26/2018 EDEN NEWMAN MD Ot R53.1 WEAKNESS 05/30/2018 TRENT NAZARIO, EDEN Resendiz Ot E11.9 TYPE 2 DIABETES MELLITUS WITHOUT COMPLIC 05/30/2018 TRENT NAZARIO, EDEN Resendiz Ot R29.6 REPEATED FALLS 05/30/2018 EDEN NEWMAN MD Ot R53.1 WEAKNESS 07/01/2018 LEYDI LOUIS BOILERS INSPECTOR Ot E66.9 OBESITY, UNSPECIFIED 07/01/2018 LEYDI LOUIS BOILERS INSPECTOR Ot G47.34 IDIO SLEEP RELATED NONOBSTRUCTIVE ALVEOL 07/01/2018 LEYDI LOUIS BOILERS INSPECTOR Ot J98.4 OTHER DISORDERS OF LUNG 07/01/2018 LEYDI LOUIS BOILERS INSPECTOR Ot R06.00 DYSPNEA, UNSPECIFIED 07/04/2018 TRENT NAZARIO, EDEN Resendiz Ot E11.9 TYPE 2 DIABETES MELLITUS WITHOUT COMPLIC 07/04/2018 TRENT NAZARIO, EDEN Resendiz Ot R29.6 REPEATED FALLS 07/04/2018 TERNT NAZARIO, EDEN Resendiz Ot R53.1 WEAKNESS 08/09/2018 TRENT NAZARIO, EDEN Resendiz Ot V72.84 EXAM PRE-OPERATIVE NOS 08/09/2018 TRENT NAZARIO, EDEN Resendiz Ot 440.0 AORTIC ATHEROSCLEROSIS 08/09/2018 TRENT NAZARIO, EDEN Resendiz Ot 553.1 UMBILICAL HERNIA 08/09/2018 EDEN NEWMAN MD Ot 571.8 CHRONIC LIVER DIS NEC 08/09/2018 TRENT NAZARIO, EDEN Resendiz Ot 789.00 ABDOMINAL PAIN, UNSPECIFIED SITE 08/09/2018 TRENT NAZARIO, EDEN Resendiz Ot 790.5 ABN SERUM ENZY LEVEL NEC 08/09/2018 LAURA NAZARIO, GANESH Fitzpatrick Ot 722.52 LUMB/LUMBOSAC DISC DEGEN 08/09/2018 TRENT NAZARIO, EDEN Resendiz Ot V76.12 OTH SCREEN MAMMO-MALIGN NEOPLASM OF DIVYA 08/09/2018 LAURA NAZARIO, GANESH Fitzpatrick Ot 722.52 LUMB/LUMBOSAC DISC DEGEN 08/09/2018 LAURA NAZARIO, GANESH Fitzpatrick Ot 722.52 LUMB/LUMBOSAC DISC DEGEN 08/09/2018 LAURA NAZARIO, GANESH Fitzpatrick Ot V58.69 OTH MED,LT,CURRENT USE 08/09/2018 TRENT NAZARIO, EDEN Resendiz Ot R51 HEADACHE 08/09/2018 O'FRAGA, KAMLESH T BOILERS INSPECTOR Ot G47.10 HYPERSOMNIA, UNSPECIFIED 08/09/2018 O'FARGA, KAMLESH T BOILERS INSPECTOR Ot H02.402 UNSPECIFIED PTOSIS OF LEFT EYELID 08/09/2018 O'FRAGA, KAMLESH T BOILERS INSPECTOR Ot M54.2 CERVICALGIA 08/09/2018 O'FRAGA, KAMLESH T BOILERS INSPECTOR Ot M79.609 PAIN IN UNSPECIFIED LIMB 08/09/2018 O'FRAGA, KAMLESH T BOILERS INSPECTOR Ot R00.0 TACHYCARDIA, UNSPECIFIED 08/09/2018 O'FRAGA, KAMLESH T BOILERS INSPECTOR Ot R20.2 PARESTHESIA OF SKIN 08/09/2018 O'FRAGA, KAMLESH T BOILERS INSPECTOR Ot R27.0 ATAXIA, UNSPECIFIED 08/09/2018 O'FRAGA, KAMLESH T BOILERS INSPECTOR Ot R29.2 ABNORMAL REFLEX 08/09/2018 O'FRAGA, KAMLESH T BOILERS INSPECTOR Ot R51 HEADACHE 08/09/2018 TRENT NAZARIO, EDEN Resendiz Ot R19.7 DIARRHEA, UNSPECIFIED 08/09/2018 JANAY BUI DO Ot R06.00 DYSPNEA, UNSPECIFIED 08/09/2018 TRENT NAZARIO, EDEN Resendiz Ot R30.0 DYSURIA 08/09/2018 LEYDI LOUIS BOILERS INSPECTOR Ot G47.34 IDIO SLEEP RELATED NONOBSTRUCTIVE ALVEOL 08/09/2018 LEYDI LOUIS BOILERS INSPECTOR Ot J98.4 OTHER DISORDERS OF LUNG 08/09/2018 LEYDI LOUIS BOILERS INSPECTOR Ot E66.9 OBESITY, UNSPECIFIED 08/09/2018 LEYDI LOUIS BOILERS INSPECTOR Ot G47.34 IDIO SLEEP RELATED NONOBSTRUCTIVE ALVEOL 08/09/2018 LEYDI LOUIS APRN Ot J98.4 OTHER DISORDERS OF LUNG 08/09/2018 HERIBERTOLEYDI APRN Ot R06.00 DYSPNEA, UNSPECIFIED 08/09/2018 LEYDI LOUIS APRN Ot G47.33 OBSTRUCTIVE SLEEP APNEA (ADULT) (PEDIATR 08/09/2018 LEYDI LOUIS APRN Ot J98.4 OTHER DISORDERS OF LUNG 08/09/2018 LEYDI LOUIS APRN Ot R06.00 DYSPNEA, UNSPECIFIED Procedures There is no data. Results Test Result Range Complete urinalysis with reflex to culture - 03/20/17 12:19 Urine color determination YELLOW NRG Urine clarity determination CLEAR NRG Urine pH measurement by test strip 8 5-9 Specific gravity of urine by test strip 1.010 1.016- 1.022 Urine protein assay by test strip, semi-quantitative NEGATIVE NEGATIVE Urine glucose detection by automated test strip NEGATIVE NEGATIVE Erythrocytes detection in urine sediment by light microscopy 1+ NEGATIVE Urine ketones detection by automated test strip NEGATIVE NEGATIVE Urine nitrite detection by test strip NEGATIVE NEGATIVE Urine total bilirubin detection by test strip NEGATIVE NEGATIVE Urine urobilinogen measurement by automated test strip (mass/volume) NORMAL NORMAL Urine leukocyte esterase detection by dipstick 3+ NEGATIVE Automated urine sediment erythrocyte count by microscopy (number/high power field) NONE NRG Automated urine sediment leukocyte count by microscopy (number/high power field ) > [HPF] NRG Bacteria detection in urine sediment by light microscopy TRACE NRG Squamous epithelial cells detection in urine sediment by light microscopy 0-2 NRG Crystals detection in urine sediment by light microscopy NONE NRG Casts detection in urine sediment by light microscopy NONE NRG Mucus detection in urine sediment by light microscopy NEGATIVE NRG Complete urinalysis with reflex to culture YES NRG Bacterial urine culture - 03/20/17 12:19 Bacterial urine culture [id number] NRG COLONY COUNT 10,000/ML - 100,000/ML NRG FTX;REPORTABLE SENSITIVITY REPORTED 03/23/17 11:30 NRG FREE TEXT ENTRY 2 PLUS, NRG FREE TEXT ENTRY 3 MIXED GRAM POSITIVES <10,000/ML NRG Bacterial susceptibility panel - 03/20/17 12:19 Gentamicin susceptibility test by minimum inhibitory concentration < = NRG Trimethoprim/sulfamethoxazole susceptibility test by minimum inhibitoryconcentration <= NRG Ampicillin susceptibility test by minimum inhibitory concentration < = NRG Tobramycin susceptibility test by minimum inhibitory concentration < = NRG Cefazolin susceptibility test by minimum inhibitory concentration 8 NRG Ceftriaxone susceptibility test by minimum inhibitory concentration <= NRG Ampicillin/sulbactam susceptibility test by minimum inhibitory concentration <= NRG Piperacillin/tazobactam susceptibility test by minimum inhibitory concentration <= NRG Ciprofloxacin susceptibility test by minimum inhibitory concentration <= NRG Meropenem susceptibility test by minimum inhibitory concentration 0.5 NRG Nitrofurantoin susceptibility test by minimum inhibitory concentration 128 NRG Aztreonam susceptibility test by minimum inhibitory concentration < = NRG Encounters ACCT No. Visit Date/Time Discharge Status Pt. Type Provider Facility Loc./Unit Complaint [id number] 07/14/2018 14:14:00 07/14/2018 23:59:59 CLS Outpatient LEYDI LOUIS APRN Via [facility] PULM DYSPNEA [id number] 07/04/2018 13:11:00 07/04/2018 14:18:00 DIS Outpatient EDEN NEWMAN MD [facility] REHAB WEAKNESS;DECONDITIONING ;FALL RISK [id number] 06/30/2018 16:45:00 06/30/2018 23:59:59 CLS Preadmit LEYDI LOUIS APRN [facility] RT DYSPNEA [id number] 06/30/2018 11:18:00 06/30/2018 23:59:59 CLS Outpatient LEYDI LOUIS APRN [facility] RT DYSPNEA [id number] 05/21/2018 12:55:00 05/26/2018 08:47:00 DIS Outpatient EDEN NEWMAN MD [facility] WEAKNESS;DECONDITIONING ;FALL RISK [id number] 02/02/2018 19:25:00 02/02/2018 21:50:00 DIS Emergency DANIKANICKIE [facility] ER POSS BLOOD CLOT [id number] 08/27/2017 13:00:00 08/27/2017 23:59:59 CLS Preadmit LEYDI LOUIS APRN [facility] PULM RESTRICTIVE LUNG DISEASE [id number] 08/13/2017 10:00:00 08/26/2017 00:01:00 DIS Outpatient LEYDI LOUIS APRN [facility] PUL RESTRICTIVE LUNG DISEASE [id number] 05/23/2017 10:00:00 05/25/2017 00:01:00 DIS Outpatient LEYDI LOUIS APRN [facility] PUL RESTRICTIVE LUNG DISEASE [id number] 04/25/2017 10:00:00 04/28/2017 00:01:00 DIS Outpatient LEYDI LOUIS APRN [facility] PUL RESTRICTIVE LUNG DISEASE [id number] 03/20/2017 12:00:00 03/20/2017 23:59:59 CLS Outpatient EDEN NEWMAN MD [facility] LAB DYSURIA [id number] 10/19/2016 12:52:00 10/19/2016 23:59:59 CLS Outpatient JANAY BUI DO [facility] RT DYSPNEA [id number] 09/14/2016 20:45:00 09/15/2016 06:45:00 DIS Outpatient LEYDI LOUIS APRN [facility] SLEEP NOCTURNAL HYPOXEMIA, HYPERSOMNIA, FELIX [id number] 07/30/2016 15:30:00 07/30/2016 16:00:00 DIS Outpatient LEYDI LOUIS APRN [facility] SLEEP SNORING, ABNORMAL LIMB MOVEMENT, EDS [id number] 05/04/2016 09:28:00 05/04/2016 11:35:00 DIS Outpatient EDEN NEWMAN MD [facility] SDC CHRONIC DIARRHEA [id number] 05/02/2016 05:50:00 05/02/2016 15:17:00 DIS Outpatient EDEN NEWMAN MD [facility] PREOP CHRONIC DIARRHEA [id number] 04/02/2016 00:11:00 04/02/2016 23:59:59 CLS Preadmit EDEN NEWMAN MD [facility] LAB DIARRHEA [id number] 01/06/2016 10:09:00 04/01/2016 00:01:00 DIS Outpatient EDNE NEWMAN MD [facility] LAB DIARRHEA [id number] 02/10/2016 14:17:00 02/10/2016 15:43:00 DIS Outpatient OTHER, UNLISTED [facility] REHAB NECK SPASM [id number] 01/07/2016 14:45:00 01/11/2016 10:25:00 DIS Inpatient EDEN NEWMAN MD [facility] 4TH UTI ACUTE RENAL FAILURE COLONIC ILEUS ELEVATED LFT [id number] 12/29/2015 12:06:00 12/29/2015 23:59:59 CLS Outpatient RIA KAMLESH Deshpande [employer] [facility] LAB HEADACHE [id number] 12/06/2015 13:25:00 12/06/2015 23:59:59 CLS Outpatient EDEN NEWMAN MD [facility] RAD 3 WEEK HISTORY GENERAL HEADACHE [id number] 07/08/2015 09:18:00 07/08/2015 10:23:00 DIS Outpatient GANESH SANCHEZ MD [facility] CARD DD WITH LUMBAR RADICULOPATHY [id number] 04/01/2015 11:02:00 04/01/2015 23:59:59 CLS Outpatient GANESH SANCHEZ MD [facility] CARD DDD LUMBAR [id number] 12/31/2014 09:19:00 12/31/2014 10:30:00 DIS Outpatient GANESH SANCHEZ MD [facility] CARD DDD [id number] 12/27/2014 16:16:00 12/27/2014 23:59:59 CLS Outpatient GANESH SANCHEZ MD [facility] RAD DDD [id number] 12/15/2014 11:23:00 12/15/2014 23:59:59 CLS Outpatient EDEN NEWMAN MD [facility] RAD SCREENING [id number] 06/25/2014 09:03:00 06/25/2014 10:40:00 DIS Outpatient GANESH SANCHEZ MD [facility] CARD DDD-LUMBAR [id number] 03/04/2014 11:56:00 03/04/2014 23:59:59 CLS Outpatient GANESH SANCHEZ MD [facility] RAD LUMBAGO [id number] 10/26/2013 09:45:00 10/26/2013 23:59:59 CLS Outpatient EDEN NEWMAN MD [facility] RAD ABD PAIN [id number] 10/23/2013 07:38:00 10/23/2013 11:14:00 DIS Outpatient EDEN NEWMAN MD [facility] SDC ABDOMINAL PAIN; GERD [id number] 10/22/2013 07:17:00 10/22/2013 23:59:59 CLS Outpatient EDEN NEWMAN MD [facility] PREOP ABDOMINAL PAIN; GERD [id number] 08/09/2018 14:56:00 ACT Emergency VAISHALI NAZARIO, JOHN PAUL Deshpande [facility] ER LT LEG INJ,FALL [id number] 12/15/2014 11:23:00 Document Registration [id number] 12/15/2014 11:23:00 Document Registration [id number] 12/15/2014 11:23:00 Document Registration [id number] 04/02/2012 00:00:00 Document Registration [id number] 01/04/2012 07:27:00 Document Registration [id number] 01/03/2012 10:16:00 Document Registration [id number] 01/03/2012 07:46:00 Document Registration [id number] 03/16/2011 08:38:00 Document Registration [id number] 02/16/2010 13:12:00 Document Registration [id number] 04/02/2015 04:30:18 ACT Document Registration
[2018-08-09] MEDS ORDERED: CLINDAMYCIN 900 MG/50 ML IVPB 50 ML IV ONE (15:15)
[2018-08-09] MEDS ORDERED: fentaNYL INJECTION 100 MCG/2 ML AMP IVP ONE (15:15)
[2018-08-09] MEDS ORDERED: TETANUS,DIPTH,PERTUSS P/F (BOOSTRIX) 0.5 ML VIAL IM ONE (15:15)
--- NOTE | 2018-08-09 15:27 | ED Fall/Injury ---
General Chief Complaint: Lower Extremity Stated Complaint: LT LEG INJ,FALL Nursing Triage Note: THE PT ARRIVAL BY EMS. LOC IS NORMAL FOR THE PT. A SPLINT IS ON THE LEFT ANKLE. Source: patient Exam Limitations: no limitations History of Present Illness Date Seen by Provider: Aug 09, 2018 Time Seen by Provider: 14:56 Initial Comments This 72-year-old woman presents to the emergency room via EMS with a left ankle injury after a fall at home. Patient has difficulty sometimes with ambulation and she is not supposed to bend over. She was bending over today without the support of her walker and got dizzy. She then tipped over somehow injuring her left ankle. She denies injury anywhere else on her body. She did not strike her head. EMS has wrapped the ankle in a vacuum splint. They report there appears to be an open fracture and there is oozing of blood. Patient denies any loss of consciousness. She was able to drag herself across the floor about 30 feet to reach a phone. Patient and EMS tonight any significant blood loss on scene. Allergies and Home Medications Allergies Coded Allergies: Penicillins (Unverified Allergy, Unknown, 05/02/16) Home Medications Amitriptyline HCl 25 Mg Tablet, 25 MG PO HS, (Reported) Famotidine 20 Mg Tablet, 20 MG PO BID, (Reported) Patient Home Medication List Home Medication List Reviewed: Yes Review of Systems Review of Systems Constitutional: no symptoms reported Eyes: No Symptoms Reported Ears, Nose, Mouth, Throat: no symptoms reported Respiratory: no symptoms reported Cardiovascular: see HPI Gastrointestinal: no symptoms reported Genitourinary: no symptoms reported Musculoskeletal: see HPI Skin: see HPI Psychiatric/Neurological: No Symptoms Reported Past Wwlaxcr-Arlpwz-Ppeacu Hx Past Med/Social Hx: Reviewed and Corrections made Patient Social History Recent Foreign Travel: No Contact w/Someone Who Travel: No Recent Infectious Disease Expo: No Immunizations Up To Date Tetanus Booster (TDap): Less than 5yrs PED Vaccines UTD: Yes Date of Pneumonia Vaccine: May 26, 2012 Date of Influenza Vaccine: Aug 12, 2013 Past Medical History Surgeries: Yes (CATATACTS) Gallbladder, Hysterectomy Respiratory: Yes (chronic shortness of air) Sleep Apnea Currently Using CPAP: No Currently Using BIPAP: No Cardiac: No Heart Attack, High Cholesterol, Hypertension Neurological: Yes Headaches /Migraines Reproductive Disorders: No Sexually Transmitted Disease: No HIV/AIDS: No Gastrointestinal: No Musculoskeletal: Yes (ARTHRITIS, chronic neck pain) Endocrine: Yes Diabetes, Non-Insulin dep Cataract Loss of Vision: Denies Hearing Impairment: Denies Cancer: No Psychosocial: No Integumentary: No Blood Disorders: No Family Medical History Cardiovascular disease 19 FATHER Cataracts 19 FATHER G8 SISTER Diabetes mellitus 19 MOTHER G8 SISTER Myocardial infarction 19 FATHER No Pertinent Family Hx Physical Exam Vital Signs Vital Signs - First Documented 08/09/18 15:05 Temp 97.9 Pulse 98 B/P (MAP) 105/86 (92) Capillary Refill : Less Than 3 Seconds Height, Weight, BMI Height: 5'4.00" Weight: 160lbs. 6.0oz. [id number]; 30.9 BMI Method:Estimated General Appearance: WD/WN, mild distress HEENT: PERRL/EOMI, normal ENT inspection, other (oropharynx dry) Neck: non-tender, full range of motion, supple, normal inspection Cardiovascular: regular rate, rhythm, no edema, no murmur Respiratory: chest non-tender, lungs clear, normal breath sounds, no respiratory distress, no accessory muscle use Gastrointestinal: normal bowel sounds, non tender, soft Extremities: non-tender, normal inspection, no pedal edema, other (left lower extremity is in a vacuum splint. There is lateral angulation of the foot. Patient retains movement of the toes, sensation, and capillary refill. There is a strong pedal pulse. There is a small amount of clotted blood in the splint. 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 The open skin was irrigated with normal saline 500 mL. Joint was then reduced with manual traction and pressure. Joint was held in place while ortho glass three-way splint was applied. The wound was covered with Xeroform and wet gauze. Patient tolerated the procedure quite well. Pedal pulses were strong while still exposed prior to César wrap being applied. Patient retained movement of her toes, capillary refill, and sensation. Skin was left open and it was not bleeding at the time of splint application. Leg was then elevated on pillows. Hand-Made Type: orthoglass Splint Application: Long Leg (three-way) Progress/Results/Core Measures Results/Orders Lab Results Laboratory Tests Test 08/09/18 16:00 08/09/18 16:41 08/09/18 17:17 Range/Units White Blood Count 10.7 4.3-11.0 10^3/uL Red Blood Count 4.40 4.35-5.85 10^6/uL Hemoglobin 13.7 11.5-16.0 G/DL Hematocrit 41 35-52 % Mean Corpuscular Volume 93 80-99 FL Mean Corpuscular Hemoglobin 31 25-34 PG Mean Corpuscular Hemoglobin Concent 33 32-36 G/DL Red Cell Distribution Width 13.4 10.0-14.5 % Platelet Count 225 130-400 10^3/uL Mean Platelet Volume 10.0 7.4-10.4 FL Neutrophils (%) (Auto) 64 42-75 % Lymphocytes (%) (Auto) 27 12-44 % Monocytes (%) (Auto) 8 0-12 % Eosinophils (%) (Auto) 1 0-10 % Basophils (%) (Auto) 0 0-10 % Neutrophils # (Auto) 6.8 1.8-7.8 X 10^3 Lymphocytes # (Auto) 2.9 1.0-4.0 X 10^3 Monocytes # (Auto) 0.8 0.0-1.0 X 10^3 Eosinophils # (Auto) 0.1 0.0-0.3 10^3/uL Basophils # (Auto) 0.0 0.0-0.1 10^3/uL Sodium Level 136 135-145 MMOL/L Potassium Level 3.5 L 3.6-5.0 MMOL/L Chloride Level 101 98-107 MMOL/L Carbon Dioxide Level 21 21-32 MMOL/L Anion Gap 14 5-14 MMOL/L Blood Urea Nitrogen 18 7-18 MG/DL Creatinine 1.18 0.60-1.30 MG/DL Estimat Glomerular Filtration Rate 45 BUN/Creatinine Ratio 15 Glucose Level 126 H 70-105 MG/DL Calcium Level 9.8 8.5-10.1 MG/DL Corrected Calcium 9.8 8.5-10.1 MG/DL Magnesium Level 2.0 1.8-2.4 MG/DL Total Bilirubin 0.7 0.1-1.0 MG/DL Aspartate Amino Transf (AST/SGOT) 33 5-34 U/L Alanine Aminotransferase (ALT/SGPT) 47 0-55 U/L Alkaline Phosphatase 80 40-136 U/L Total Protein 6.6 6.4-8.2 GM/DL Albumin 4.0 3.2-4.5 GM/DL Prothrombin Time 13.9 12.2-14.7 SEC INR Comment 1.1 0.8-1.4 Activated Partial Thromboplast Time 27 24-35 SEC Urine Color YELLOW Urine Clarity SLIGHTLY CLOUDY Urine pH 7 5-9 Urine Specific [place] 1.010 L 1.016-1.022 Urine Protein NEGATIVE NEGATIVE Urine Glucose (UA) 4+ H NEGATIVE Urine Ketones NEGATIVE NEGATIVE Urine Nitrite NEGATIVE NEGATIVE Urine Bilirubin NEGATIVE NEGATIVE Urine Urobilinogen NORMAL NORMAL MG/DL Urine Leukocyte Esterase NEGATIVE NEGATIVE Urine RBC (Auto) NEGATIVE NEGATIVE Urine RBC NONE /HPF Urine WBC NONE /HPF Urine Squamous Epithelial Cells NONE /HPF Urine Crystals NONE /LPF Urine Bacteria NEGATIVE /HPF Urine Casts NONE /LPF Urine Mucus NEGATIVE /LPF Urine Culture Indicated NO My Orders Orders - JOHN PAUL TOM MD Cbc With Automated Diff (08/09/18 15:00) Comprehensive Metabolic Panel (08/09/18 15:00) Magnesium (08/09/18 15:00) Protime With Inr (08/09/18 15:00) Partial Thromboplastin Time (08/09/18 15:00) Ua Culture If Indicated (08/09/18 15:00) Saline Lock/Iv-Start (08/09/18 15:00) Monitor-Rhythm Ecg Trace Only (08/09/18 15:00) Tibia/Fibula, Left, 2 Views (08/09/18 15:00) Fentanyl Injection (Sublimaze Injection (08/09/18 15:15) Dipht,Pertuss(Acell),Tet Adult (Boostrix (08/09/18 15:15) Clindamycin 900 Mg/50 Ml Ivpb (Cleocin P (08/09/18 15:15) Morphine Injection (Morphine Injection (08/09/18 15:45) Hydromorphone Injection (Dilaudid Inject (08/09/18 16:04) Cefazolin 2 Gm Iv Premixed (Ancef 2 Gm P (08/09/18 16:30) Ankle, Left, 2 Views (08/09/18 17:00) Catheter(Urinary) Care .0300, 1500 (08/09/18 17:03) Medications Given in ED Current Medications Medications Dose Ordered Sig/Ronnell Route Start Time Stop Time Status Last Admin Dose Admin Cefazolin Sodium/ Dextrose 50 ml @ 140 mls/hr ONCE ONCE IV 08/09/18 16:30 08/09/18 16:52 DC 08/09/18 16:58 140 MLS/HR Clindamycin Phosphate/Dextrose 50 ml @ 100 mls/hr ONCE ONCE IV 08/09/18 15:15 08/09/18 15:44 DC 08/09/18 15:26 100 MLS/HR Diphtheria/ Tetanus/Acell Pertussis 0.5 ml ONCE ONCE IM 08/09/18 15:15 08/09/18 15:16 DC 08/09/18 15:25 0.5 ML Fentanyl Citrate 50 mcg ONCE ONCE IVP 08/09/18 15:15 08/09/18 15:16 DC 08/09/18 15:18 50 MCG Morphine Sulfate 5 mg ONCE ONCE IVP 08/09/18 15:45 08/09/18 15:46 DC 08/09/18 15:49 5 MG Vital Signs/I&O 08/09/18 15:05 Temp 97.9 Pulse 98 B/P (MAP) 105/86 (92) Blood Pressure Mean: 92 Progress Progress Note : Progress Note Patient was treated with fentanyl and morphine for pain initially. No orthopedic coverage is available at this facility this weekend. Patient prefers transfer to [facility] if necessary. Dr. Brody at [facility] was first contacted at 13:38. Initially was felt this fracture could be managed with splinting and outpatient follow-up based on x-rays. However, after taking down the vacuum splint for orthotic glass splinting, it was apparent the extent of soft tissue injury and dislocation with protrusion of the distal tibia would require a surgical washout emergently. I discussed the case again with Dr. Brody who agrees to patient transfer. Patient had received clindamycin 900 mg IV initially for antibiotic prophylaxis. Per Dr. Brody's recommendation Ancef was added. Patient received a tetanus booster. Joint reduction was performed and joint was stabilized by applying a three-way Ortho-Glass splint. Patient was pretreated with Dilaudid 1 mg IV. Arrangements were then made to transfer to [facility]. Patient received 1 L of IV normal saline. Borja catheter was placed. Diagnostic Imaging Diagonstic Imaging: Xray Plain Films/CT/US/NM/MRI: leg Comments Tib-fib x-rays viewed by me and report reviewed. See report below: NAME: HYUN BORJA [employer] REC#: [id number] PT STATUS: REG ER : 1945 PHYSICIAN: JOHN PAUL TOM MD ADMIT DATE: 08/09/18/ER Signed Date of Exam: 08/09/18 TIBIA/FIBULA, LEFT, 2 VIEWS Indication: Left lower leg pain after injury. Comparison: None. Discussion: Four views of the left tibia and fibula were obtained. Fracture dislocation of the left ankle. The talus is displaced laterally as compared to the tibia. Distal fibular fracture is present. Additional fracture fragment is likely the posterior malleolus. Recommend postreduction films. No other fracture identified. Exam is somewhat limited due to overlying splint material. Impression: Fracture dislocation of the left ankle. Dictated by: Dictated on workstation # [id number] Dict: 08/09/18 1530 Trans: 08/09/18 1652 Interpreted by: EMANUEL SANTIAGO MD Electronically signed by: EMANUEL SANTIAGO MD 08/09/18 9457 Diagonstic Imaging: Xray Plain Films/CT/US/NM/MRI: ankle Comments Ankle x-ray viewed by me and report reviewed. See report below: NAME: HYUN BORJA [facility] REC[facility] [id number] PT STATUS: REG ER : 1945 PHYSICIAN: JOHN PAUL TOM MD ADMIT DATE: 08/09/18/ER Draft Date of Exam:08/09/18 ANKLE, LEFT, 2 VIEWS EXAMINATION: Left ankle injury post reduction. COMPARISON: 08/09/2018 at 3:18 p.m. EXAMINATION: Two views of the left ankle were obtained. FINDINGS: Significantly improved alignment of the ankle mortise. Fracture sites are again demonstrated and are better aligned. IMPRESSION: Postreduction views, as described. Dictated on workstation # [id number] Dict: 08/09/18 1726 Trans: 08/09/18 1734 [facility] [id number] Interpreted by: JORDANA SHAW Departure Impression Primary Impression: Open left ankle fracture Additional Impressions: Dislocation of left ankle joint Qualified Codes: S93.05XA - Dislocation of left ankle joint, initial encounter Fall on same level Qualified Codes: W18.30XA - Fall on same level, unspecified, initial encounter Trimalleolar fracture of ankle, open Disposition: 02 XFER [facility]-TRM HOSP Condition: Improved Transfer Time Spoke to Accepting Phy: 15:38 Transfer Time: 17:15 Transfer Facility: [facility] to the ER. Dr. Brody excepting admission on the orthopedic service. Method of Transfer: EMS ([facility]) Departure-Patient Inst. Referrals: EDEN NEWMAN MD (PCP/Family) Primary Care Physician Copy Copies To 1: EDEN NEWMAN MD, JOSHUA T MD Aug 09, 2018 15:27
--- NOTE | 2018-08-09 15:34 | Diagnostic Imaging Report ---
Indication: Left lower leg pain after injury. Comparison: None. Discussion: Four views of the left tibia and fibula were obtained. Fracture dislocation of the left ankle. The talus is displaced laterally as compared to the tibia. Distal fibular fracture is present. Additional fracture fragment is likely the posterior malleolus. Recommend postreduction films. No other fracture identified. Exam is somewhat limited due to overlying splint material. Impression: Fracture dislocation of the left ankle. Dictated by: Dictated on workstation # [id number]
[2018-08-09] MEDS ORDERED: morphine INJ 10 MG/ML 1ML (SYR OR VIAL) IVP ONE (15:45)
[2018-08-09] MEDS ORDERED: HYDROmorphone 2 MG/ML VIAL (DILAUDID) IV STA (16:04)
[2018-08-09 16:10] LABS: BASOPHILS % (AUTO) 0 % (0-10); EOSINOPHILS # (AUTO) 0.1 10^3/uL (0.0-0.3); EOSINOPHILS % (AUTO) 1 % (0-10); HEMATOCRIT 41 % (35-52); HEMOGLOBIN 13.7 G/DL (11.5-16.0); LYMPHOCYTES # (AUTO) 2.9 X 10^3 (1.0-4.0); LYMPHOCYTES % (AUTO) 27 % (12-44); MEAN CORPUSCULAR HEMOGLOBIN 31 PG (25-34); MEAN CORPUSCULAR HGB CONC 33 G/DL (32-36); MEAN CORPUSCULAR VOLUME 93 FL (80-99); MONOCYTES # (AUTO) 0.8 X 10^3 (0.0-1.0); MONOCYTES % (AUTO) 8 % (0-12); NEUTROPHILS # (AUTO) 6.8 X 10^3 (1.8-7.8); NEUTROPHILS % (AUTO) 64 % (42-75); PLATELET COUNT 225 10^3/uL (130-400); RED CELL DISTRIBUTION WIDTH 13.4 % (10.0-14.5); WHITE BLOOD COUNT 10.7 10^3/uL (4.3-11.0)
[2018-08-09 16:24] LABS: BILIRUBIN,TOTAL 0.7 MG/DL (0.1-1.0); CALCIUM 9.8 MG/DL (8.5-10.1); CREATININE SERUM 1.18 MG/DL (0.60-1.30); POTASSIUM 3.5 MMOL/L (3.6-5.0); TOTAL PROTEIN 6.6 GM/DL (6.4-8.2)
[2018-08-09] MEDS ORDERED: ceFAZolin 2 GM IV Premixed 50 ML IV ONE (16:30)
[2018-08-09 16:59] LABS: INR 1.1 (0.8-1.4); PROTHROMBIN TIME PATIENT 13.9 SEC (12.2-14.7)
[2018-08-09 17:23] LABS: BILIRUBIN,URINE NEGATIVE (NEGATIVE); CLARITY,URINE SLIGHTLY CLOUDY; COLOR,URINE YELLOW; GLUCOSE, URINE (UA) 4+ (NEGATIVE); KETONES,URINE NEGATIVE (NEGATIVE); LEUKOCYTE ESTERASE ,URINE NEGATIVE (NEGATIVE); NITRITE,URINE NEGATIVE (NEGATIVE); PH,URINE 7 (5-9); PROTEIN,URINE NEGATIVE (NEGATIVE); UROBILINOGEN,URINE NORMAL (NORMAL)
[2018-08-09 17:33] LABS: BACTERIA,URINE NEGATIVE /HPF
--- NOTE | 2018-08-09 17:35 | Diagnostic Imaging Report ---
EXAMINATION: Left ankle injury post reduction. COMPARISON: 08/09/2018 at 3:18 p.m. EXAMINATION: Two views of the left ankle were obtained. FINDINGS: Significantly improved alignment of the ankle mortise. Fracture sites are again demonstrated and are better aligned. IMPRESSION: Postreduction views, as described. Dictated by: Dictated on workstation # [id number]
[2018-08-09 17:39] VITALS: BP 114/69
== END 2018-08-09 17:33 | disposition short-term general hospital (02) ==
LOC: EDUNIT# 14:54 → ER 14:56
DX: S99.912A Unspecified injury of left ankle, initial encounter (principal); G47.30 Sleep apnea, unspecified; I25.2 Old myocardial infarction; E78.00 Pure hypercholesterolemia, unspecified; I10 Essential (primary) hypertension; R40.2142 Coma scale, eyes open, spontaneous, at arrival to emergency department; R40.2252 Coma scale, best verbal response, oriented, at arrival to emergency department; R40.2362 Coma scale, best motor response, obeys commands, at arrival to emergency department; G43.909 Migraine, unspecified, not intractable, without status migrainosus; E11.9 Type 2 diabetes mellitus without complications; Z82.49 Family history of ischemic heart disease and other diseases of the circulatory system; Z88.0 Allergy status to penicillin; Z90.710 Acquired absence of both cervix and uterus; Z98.890 Other specified postprocedural states; W19.XXXA Unspecified fall, initial encounter; Y92.009 Unspecified place in unspecified non-institutional (private) residence as the place of occurrence of the external cause
CPT/HCPCS: 29515; 36415; 51702; 73590; 73600; 80053; 81000; 83735; 85025; 85610; 85730; 90715

== ENCOUNTER 2019-01-22 13:00 | Outpatient (RCR) | payer MEDICARE, OTHER ==
[2018-12-30 13:02] VITALS: BP 100/62
[2018-12-30 14:00] VITALS: BP 120/64
[2019-01-01 13:05] VITALS: BP 130/50
[2019-01-01 13:40] VITALS: BP 134/65
[2019-01-06 13:00] VITALS: BP 130/60
[2019-01-06 13:56] VITALS: BP 118/60
[2019-01-08 13:00] VITALS: BP 120/60
[2019-01-08 13:55] VITALS: BP 120/62
[2019-01-20 12:52] VITALS: BP 120/40
[2019-01-20 13:30] VITALS: BP 103/40
[2019-01-22 13:00] VITALS: BP 121/60
[~2019-01-22 13:00] MED LIST changes: +LOSA100T57; -LOSA100T8; +LOSA50TA63 PO; -LOSA50TA7 PO
[2019-01-29 12:55] VITALS: BP 130/60
[2019-01-29 13:50] VITALS: BP 130/60
== END 2019-03-08 | disposition home or self-care (01) ==
LOC: PULM 13:00
PROVIDERS: ATTEND Internal Medicine
DX: J44.9 Chronic obstructive pulmonary disease, unspecified (principal); R09.02 Hypoxemia
CPT/HCPCS: 99211

== ENCOUNTER → 2019-04-02 | Outpatient (CLI) | payer MEDICARE, OTHER ==
[~2019-04-02] MED LIST changes: -DULO60CA58 PO; +DULO60CA59 PO
--- NOTE | 2019-04-02 18:56 | Diagnostic Imaging Report ---
INDICATION: Routine screening. Comparison is made with prior mammogram from 12/15/2014. 2-D and 3-D bilateral screening mammography was performed. The current study was also evaluated with a Computer Aided Detection (CAD) system. 3-D tomosynthesis was also performed and reviewed. FINDINGS: Both breasts are heterogeneously dense, limiting the sensitivity of mammography. Benign calcifications are noted bilaterally. Nodular densities in the axillary tail on the left appear stable and consistent with benign etiologies. No spiculated mass or malignant-appearing microcalcifications are seen. The axillae are unremarkable. IMPRESSION: No mammographic features suspicious for malignancy are identified. ACR BI-RADS Category 2: Benign findings. Result letter will be mailed to the patient. Note: At least 10% of breast cancer is not imaged by mammography. Dictated by: Dictated on workstation # [id number]
== END ==
LOC: RAD 14:57
PROVIDERS: ATTEND Internal Medicine
DX: Z12.31 Encounter for screening mammogram for malignant neoplasm of breast (principal)
CPT/HCPCS: 77067

== ENCOUNTER → 2020-05-30 | Outpatient (CLI) | payer MEDICARE, OTHER ==
[~2020-05-30] MED LIST changes: +ACHYD1T PO; -BISO5TAB PO; -GLIM2TAB PO; +GLIM2TAB4 PO; -HYDR-3820 PO; +NF-BISOP5 PO; -TRAM50TA2 PO; +TRM50T PO
--- NOTE | 2020-05-30 11:08 | Diagnostic Imaging Report ---
CLINICAL INDICATION: Patient has low back pain and left hip/leg pain. Patient with history of fall. EXAM: MRI of the lumbar spine performed without IV contrast. Sagittal T2, sagittal T1, sagittal T2 fat-sat, and axial T2. COMPARISON: MRI of the lumbar spine performed without contrast dated 12/27/2014. FINDINGS: There is no acute lumbar spine fracture. 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 The remainder of the lumbar spine otherwise has normal signal. There is no significant paraspinal soft tissue abnormality. The visualized portions of the distal thoracic spinal cord, conus medullaris, and cauda equina nerve roots are unremarkable. The conus medullaris tip is seen at the upper L1 vertebral body level. There are small spurs involving the lumbar spine and lower lumbar spine facet arthropathy. The lumbar spine degenerative disease is stable compared to prior study. T11-T12: There is bilateral facet arthropathy. There is no significant central canal or neural foramen narrowing, as visualized. T12-L1: There is mild left facet arthropathy. There is no significant central spinal canal or neural foramen narrowing. L1-L2: Unremarkable. L2-L3: There is mild bilateral facet arthropathy. There is mild right neural foramen narrowing and moderate left neural foramen narrowing. There is no significant central canal narrowing. L3-L4: There is mild bilateral facet arthropathy. There is owci-jw-zijrklrx right neural foramen narrowing and moderate left neural foramen narrowing. There is no significant central canal stenosis. L4-L5: There is a mild diffuse disc bulge. There is a small annular tear involving the left extraforaminal aspect of the disc. There is severe right neural foramen narrowing and bndfsufd-tw-yatllg left neural foramen narrowing. There is moderate bilateral facet arthropathy. There is no significant central canal narrowing. L5-S1: There is stable roughly 3 mm of grade 1 retrolisthesis of L5 on S1. There is diffuse disc bulge with disc spurs in the foraminal regions bilaterally and posteriorly. There is moderate bilateral facet arthropathy. There is disc herniation encroachment upon the left lateral recess which may encroach upon the non-exited left S1 nerve root. IMPRESSION: 1: There is stable multilevel lumbar spine degenerative disease which is described in detail above. 2: Stable grade 1 retrolisthesis of L5 on S1. Dictated by: Dictated on workstation # [id number]
--- NOTE | 2020-05-30 11:10 | Diagnostic Imaging Report ---
INDICATION: Routine screening. COMPARISON: 04/02/2019 and 12/15/2014. TECHNIQUE: 2D and 3D bilateral screening mammography was performed with CAD. FINDINGS: Both breasts are heterogeneously dense, limiting the sensitivity of mammography. Benign calcifications in the lateral left breast are stable. Both breasts have a fibronodular parenchymal pattern. There is a focal density in the right breast on the CC view at posterior depth just lateral to the nipple line. No definite corresponding density on the MLO view is seen. Additional views are recommended. The axillae are unremarkable. IMPRESSION: Right breast density. Additional views including spot compression CC and rolled CC views are recommended for further evaluation. ACR BI-RADS Category 0: Incomplete. (Needs additional imaging evaluation). Result letter will be mailed to the patient. Note: At least 10% of breast cancer is not imaged by mammography. Dictated by: Dictated on workstation # [id number]
== END ==
LOC: RAD 08:20
PROVIDERS: ATTEND Internal Medicine
DX: Z12.31 Encounter for screening mammogram for malignant neoplasm of breast (principal); M47.816 Spondylosis without myelopathy or radiculopathy, lumbar region; M43.17 Spondylolisthesis, lumbosacral region; M48.07 Spinal stenosis, lumbosacral region
CPT/HCPCS: 72148; 77063; 77067

== ENCOUNTER → 2020-06-10 | Outpatient (CLI) | payer MEDICARE, OTHER ==
--- NOTE | 2020-06-10 14:11 | Diagnostic Imaging Report ---
INDICATION: Right breast density. Patient presented for additional views. Correlation is made with screening study from 05/30/2020. Unilateral right 2-D and 3-D diagnostic mammography was performed. This included spot compression CC, rolled CC and 90 degree lateral views. Area of density in the outer right breast posterior depth appears to resolve with additional views. This most likely represented superimposed tissue. No mass is seen. IMPRESSION: BI-RADS Category 1 Additional views fail to demonstrate a discrete mass. Patient may return to routine annual screening mammography. ACR BI-RADS Category 1: Negative. Result letter will be mailed to the patient. Note: At least 10% of breast cancer is not imaged by mammography. Dictated by: Dictated on workstation # [id number]
== END ==
LOC: RAD 13:16
PROVIDERS: ATTEND Internal Medicine
DX: N64.89 Other specified disorders of breast (principal)
CPT/HCPCS: 77065; G0279

== ENCOUNTER 2020-08-25 13:41 | Outpatient (RCR) | payer MEDICARE, OTHER | END 2020-09-13 11:05 | disposition home or self-care (01) | PROVIDERS: ATTEND Pain Medicine Interventional Pain Medicine | DX: M51.16 Intervertebral disc disorders with radiculopathy, lumbar region (principal); M47.26 Other spondylosis with radiculopathy, lumbar region ==

== ENCOUNTER → 2021-05-15 | Outpatient (CLI) | payer MEDICARE, OTHER ==
--- NOTE | 2021-05-15 11:12 | Diagnostic Imaging Report ---
PROCEDURE: US left lower extremity venous. TECHNIQUE: Multiple real-time grayscale images were obtained over the left lower extremity in various projections. Additional duplex Doppler and color Doppler images were also obtained. INDICATION: Pain and swelling. FINDINGS: The left common femoral, superficial femoral, popliteal veins and tibial veins demonstrate normal response to compression, augmentation, and Valsalva. There are no abnormal left lower extremity fluid collections or masses. IMPRESSION: No evidence of deep venous thrombosis in the left lower extremity. Dictated by: Dictated on workstation # [id number]
== END ==
LOC: RAD 10:30
PROVIDERS: ATTEND Nurse Practitioner Family
DX: M79.605 Pain in left leg (principal)

== ENCOUNTER → 2021-06-23 | Outpatient (CLI) | payer MEDICARE, OTHER ==
[~2021-06-23] MED LIST changes: -DULO60CA6 PO; +DULO60CA7 PO
--- NOTE | 2021-06-26 11:00 | Diagnostic Imaging Report ---
INDICATION: Routine screening. COMPARISON: 05/30/2020 and 04/02/2019. TECHNIQUE: 2D and 3D bilateral screening mammography was performed with CAD. FINDINGS: Both breasts are heterogeneously dense, limiting the sensitivity of mammography. The fibronodular parenchymal pattern appears to be stable. The coarse calcifications in the upper outer left breast appear stable. No spiculated mass or malignant-appearing microcalcifications are seen. The axillae are unremarkable. IMPRESSION: No mammographic features suspicious for malignancy are identified. ACR BI-RADS Category 2: Benign findings. Result letter will be mailed to the patient. Note: At least 10% of breast cancer is not imaged by mammography. Dictated by: Dictated on workstation # [id number]
== END ==
LOC: RAD 11:15
PROVIDERS: ATTEND Internal Medicine
DX: Z12.31 Encounter for screening mammogram for malignant neoplasm of breast (principal)
CPT/HCPCS: 77063; 77067

== ENCOUNTER → 2022-06-25 | Outpatient (CLI) | payer MEDICARE, OTHER ==
--- NOTE | 2022-06-26 16:01 | Diagnostic Imaging Report ---
INDICATION: Routine screening. COMPARISON: 06/23/2021 and 05/30/2020. TECHNIQUE: 2D and 3D bilateral screening mammography was performed with CAD. FINDINGS: Both breasts are heterogeneously dense, limiting the sensitivity of mammography. The fibronodular parenchymal pattern appears to be stable. Benign-appearing calcifications in the upper outer left breast appear stable. No mass or malignant-appearing microcalcifications are seen. The axillae are unremarkable. IMPRESSION: No mammographic features suspicious for malignancy are identified. ACR BI-RADS Category 2: Benign findings. Result letter will be mailed to the patient. Note: At least 10% of breast cancer is not imaged by mammography. Dictated by: Dictated on workstation # [id number]
== END ==
LOC: RAD 13:52
PROVIDERS: ATTEND Internal Medicine
DX: Z12.31 Encounter for screening mammogram for malignant neoplasm of breast (principal)
CPT/HCPCS: 77063; 77067

== ENCOUNTER 2022-10-25 20:10 | Emergency (ER) | payer MEDICARE, OTHER ==
[~2022-10-25] VITALS: Ht 162.6 cm; Wt 72.6 kg
[2022-10-25] MEDS ORDERED: GLIM4TAB5 (20:25)
[2022-10-25] MEDS ORDERED: ALEN70TA80 (20:25)
[2022-10-25] MEDS ORDERED: GBPN600T (20:25)
[2022-10-25] MEDS ORDERED: ATOR20TA66 (20:25)
[2022-10-25] MEDS ORDERED: MELO7.5T46 (20:25)
[2022-10-25] MEDS ORDERED: VENL150C98 (20:25)
[2022-10-25] MEDS ORDERED: EMPA1TAB19 (20:25)
[2022-10-25] MEDS ORDERED: HYOS0.1297 (20:25)
--- NOTE | 2022-10-25 20:50 | ED Back Pain ---
General Chief Complaint: Back Problems Stated Complaint: BACK PAIN Nursing Triage Note: to e.d. in wheelchair c/o worsened chronic lower back pain alternating from left to right. currently c/o left lower back pain radiating to left thigh x2 days after sliding to floor approx. 2 days ago. denies other complaints/injuries. Source of Information: Patient Exam Limitations: No Limitations History of Present Illness Date Seen by Provider: Oct 25, 2022 Time Seen by Provider: 20:35 Initial Comments Patient is a 77-year-old female who presents the emergency room with a chief complaint of exacerbation of chronic low back pain. She reports 2 or 3 days ago she had a mechanical fall. She was bending over to do something, lost her balance and fell/sat backwards "hard". She states that she felt fine after this injury. As the next 2 days progressed she developed worsening pain in her low back and bilateral posterior hips. She states her legs feel weak. The pain radiates into her upper thighs. She states she has a difficult time going from sitting to standing due to the feeling of weakness in her legs. She has been using IcyHot/Biofreeze, lidocaine patches and taking some 5-year-old hydrocodone that she has at home. She denies bowel or bladder incontinence. No saddle anesthesia reported. No subsequent falls. Timing/Duration: 1 Day Severity: Severe Pain/Injury Location: Back (lumbar) Radiation: Upper Legs Method of Injury: Other ("hard sit") Associated Symptoms: weakness (legs and knees); No numbness in legs/feet, No tingling in legs/feet, No sensory/motor loss; lower back pain; No loss of bladder control, No loss of bowel control Allergies and Home Medications Allergies Coded Allergies: Penicillins (Unverified Allergy, Unknown, 05/02/16) Patient Home Medication List Home Medication List Reviewed: Yes Alendronate Sodium (Alendronate Sodium) 70 Mg Tablet, (Reported) Entered as Reported by: ALPHONSE BLANC on 10/25/222024 Last Action: New Order Amitriptyline HCl (Amitriptyline HCl) 25 Mg Tablet, 25 MG PO HS, (Reported) Entered as Reported by: MICHELE MOLINA on 05/02/16 1515 Atorvastatin Calcium (Atorvastatin Calcium) 20 Mg Tablet, (Reported) Entered as Reported by: ALPHONSE BLANC on 10/25/222024 Last Action: New Order Budesonide (Budesonide EC) 3 Mg Capdr...er, (Reported) Entered as Reported by: RICCO CHEEK on 02/02/182019 Empagliflozin/Metformin HCl (Synjardy Xr 25-1,000 mg Tablet) 25 Mg-1,000 Mg Tab.bp.24h, (Reported) Entered as Reported by: ALPHONSE BLANC on 10/25/222024 Last Action: New Order Gabapentin (Gabapentin) 600 Mg Tablet, (Reported) Entered as Reported by: ALPHONSE BLANC on 10/25/222024 Last Action: New Order Glimepiride (Glimepiride) 4 Mg Tablet, (Reported) Entered as Reported by: ALPHONSE BLANC on 10/25/222024 Last Action: New Order Hyoscyamine Sulfate (Oscimin Sl) 0.125 Mg Tab.subl, (Reported) Entered as Reported by: ALPHONSE BLANC on 10/25/222024 Last Action: New Order Meloxicam (Meloxicam) 7.5 Mg Tablet, (Reported) Entered as Reported by: ALPHONSE BLANC on 10/25/222024 Last Action: New Order Ropinirole HCl (Ropinirole HCl) 0.25 Mg Tablet, (Reported) Entered as Reported by: RICCO CHEEK on 02/02/182019 Venlafaxine HCl (Venlafaxine HCl ER) 150 Mg Cap.er.24h, (Reported) Entered as Reported by: ALPHONSE BLANC on 10/25/222024 Last Action: New Order Discontinued Medications Exenatide Microspheres (Bydureon Pen) 2 Mg/0.65 Ml Pen.injctr, (Reported) Discontinued Reason: No Longer Taking Entered as Reported by: RICCO CHEEK on 02/02/182019 Last Action: Discontinued Famotidine (Pepcid) 20 Mg Tablet, 20 MG PO BID, (Reported) Discontinued Reason: No Longer Taking Entered as Reported by: MICHELE MOLINA on 05/02/161514 Last Action: Discontinued Losartan Potassium (Losartan Potassium) 100 Mg Tablet, (Reported) Discontinued Reason: No Longer Taking Entered as Reported by: RICCO CHEEK on 02/02/182019 Last Action: Discontinued Review of Systems Constitutional: see HPI EENTM: no symptoms reported Respiratory: no symptoms reported Cardiovascular: no symptoms reported Gastrointestinal: no symptoms reported Genitourinary: no symptoms reported Musculoskeletal: back pain Skin: no symptoms reported Psychiatric/Neurological: No Symptoms Reported Past Ycdrpol-Dfjpcf-Eyypam Hx Patient Social History Tobacco Use?: No Substance use?: No Alcohol Use?: No Pt feels they are or have been: No Immunizations Up To Date Tetanus Booster (TDap): Less than 5yrs PED Vaccines UTD: Yes First/Initial COVID19 Vaccinat: x4 Past Medical History Surgery/Hospitalization HX: cataracts, cholecystectomy, hysterectomy, mi, hld, htn, chronic back/neck pain, arthritis, djd, neuropathy, niddm, depression Surgeries: Yes (CATATACTS) Gallbladder, Hysterectomy Respiratory: Yes (chronic shortness of air) Sleep Apnea Currently Using CPAP: No Currently Using BIPAP: No Cardiac: No Heart Attack, High Cholesterol, Hypertension Neurological: Yes Headaches /Migraines Reproductive Disorders: No Sexually Transmitted Disease: No HIV/AIDS: No Gastrointestinal: No Musculoskeletal: Yes (ARTHRITIS, chronic neck pain) Endocrine: Yes Diabetes, Non-Insulin dep Cataract Loss of Vision: Denies Hearing Impairment: Denies Cancer: No Psychosocial: No Integumentary: No Blood Disorders: No Family Medical History Cardiovascular disease 19 FATHER Cataracts 19 FATHER G8 SISTER Diabetes mellitus 19 MOTHER G8 SISTER Myocardial infarction 19 FATHER No Pertinent Family Hx Physical Exam Vital Signs Vital Signs - First Documented 10/25/22 20:16 Temp 36.4 Pulse 83 Resp 18 B/P (MAP) 157/81 (106) Pulse Ox 99 O2 Delivery Room Air Capillary Refill : Less Than 3 Seconds Height, Weight, BMI Height: 5'4.00" Weight: 196lbs. 0.4oz. [id number]; 27.00 BMI Method:Estimated General Appearance: No Apparent Distress, WD/WN HEENT: PERRL/EOMI Neck: Normal Inspection Cardiovascular: Regular Rate, Rhythm Respiratory: Lungs Clear, Normal Breath Sounds, No Accessory Muscle Use, No Respiratory Distress Gastrointestinal: Non Tender, Soft Back: Normal Inspection, Vertebral Tenderness (Vertebral tenderness at approximately L4, L5 as well as posterior superior iliac crest bilaterally. 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 Skin: Normal Color, Warm/Dry Progress/Results/Core Measures Results/Orders My Orders Orders - HARISH UNGER MD Tramadol Tablet (Ultram Tablet) (10/25/22 21:00) Ct Lumbar Spine Wo (10/25/22 20:50) Medications Given in ED Current Medications Medications Dose Ordered Sig/Ronnell Route Start Time Stop Time Status Last Admin Dose Admin Tramadol HCl 50 mg ONCE ONCE PO 10/25/22 21:00 10/25/22 21:01 DC 10/25/22 20:58 50 MG Vital Signs/I&O 10/25/22 20:16 Temp 36.4 Pulse 83 Resp 18 B/P (MAP) 157/81 (106) Pulse Ox 99 O2 Delivery Room Air Blood Pressure Mean: 106 Progress Progress Note : Time: 21:31 Progress Note Patient seen and evaluated by me, 77-year-old with low back pain status post "fall". Evaluation today includes physical exam with neurologic exam and CT lumbar spine. Patient's physical exam is pertinent for tenderness to the mid lumbar spine, also tenderness over the posterior superior iliac crest bilaterally. No ecchymosis, swelling. She is point tender in all of these areas. She has a negative straight leg raise. Normal dorsiflexion and plantarflexion of the feet with equal 5/5 strength. Sensation intact throughout no saddle anesthesia. Patient had reported no incontinence. Abdominal exam is benign. Differential diagnosis based on history and physical exam, compression fracture lumbar spine due to age and osteoporosis, other lumbar spine fracture with radiculopathy, nonspecific musculoskeletal low back pain. Patient's CT lumbar spine is unremarkable for any fractures or significant acute pathology. She is treated in the emergency department with 150 mg tramadol. She achieved moderate relief and is able to sit up and converse without distress. She states her pain is improved. Patient will be sent home with a t lyla-home pack of tramadol and given a prescription of 10 pills. She has follow- up arranged with her pain management doctor in about 2 weeks. Return precautions are provided. Patient verbalized understanding. All questions are sought and answered. Patient is stable for discharge. Diagnostic Imaging Diagonstic Imaging: CT Comments [facility] [place], [place] NAME: HYUN BORJA [facility] REC#: [id number] PT STATUS: REG ER : 1945 PHYSICIAN: HARISH UNGER MD ADMIT DATE: 10/25/22/ER Draft Date of Exam:10/25/22 CT LUMBAR SPINE WO PROCEDURE: CT lumbar spine without contrast. TECHNIQUE: Multiple contiguous axial images were obtained through the lumbar spine without the use of intravenous contrast. Sagittal and coronal reformations were then performed. Auto Exposure Controls were utilized during the CT exam to meet ALARA standards for radiation dose reduction. INDICATION: Fall. Trauma. Low back pain. COMPARISON: MRI lumbar spine 05/30/2020. FINDINGS: Stable grade 1 retrolisthesis of L5 on S1. Vertebral body heights are preserved. No fracture. Visualized pelvis is intact. No CT evidence of high-grade spinal canal stenosis. Moderate scattered neural foraminal narrowing is greatest at L5-S1. Moderate atherosclerotic calcification. No acute finding in the visualized paravertebral soft tissues. IMPRESSION: 1. No acute CT finding in the lumbar spine. 2. Stable appearing spondylotic change. No CT evidence of high-grade spinal canal stenosis. Dictated on workstation # [id number] Dict: 10/25/222110 Trans: 10/25/222116 PJ [id number] Interpreted by: JATINDER ZELAYA MD Electronically signed by: Departure Impression Primary Impression: Acute exacerbation of chronic low back pain Disposition: HOME, SELF-CARE Condition: Improved Departure-Patient Inst. Decision time for Depature: 21:37 Referrals: EDEN NEWMAN MD (PCP/Family) Primary Care Physician Patient Instructions: Low Back Pain in Adults Add. Discharge Instructions: Continue to alternate Tylenol extra strength and ibuprofen 3 tablets which is 600 mg every 6 hours. Always take ibuprofen with food. You can continue to use the lidocaine patches as well as Biofreeze/IcyHot. Please follow packaging instructions. You can also use a heating pad to the sore area of your back and hips. I have prescribed you some tramadol for pain. You can take 1 every 6 hours as needed for more severe pain. Do not drive and take this medication. Come back to the emergency room if you have worsening pain especially with loss of bowel or bladder function, numbness in your groin or leg weakness to where you cannot stand. Please keep your follow-up appointment as scheduled with Dr. Tatum. Scripts Tramadol HCl (Tramadol HCl) 50 Mg Tablet 50 MG PO Q6H PRN for PAIN, #12 TAB 0 Refills Prov: HARISH UNGER MD 10/25/22 Copy Copies To 1: EDEN NEWMAN MD, KATHRYN M MD Oct 25, 2022 20:50
--- NOTE | 2022-10-25 21:19 | Diagnostic Imaging Report ---
PROCEDURE: CT lumbar spine without contrast. TECHNIQUE: Multiple contiguous axial images were obtained through the lumbar spine without the use of intravenous contrast. Sagittal and coronal reformations were then performed. Auto Exposure Controls were utilized during the CT exam to meet ALARA standards for radiation dose reduction. INDICATION: Fall. Trauma. Low back pain. COMPARISON: MRI lumbar spine 05/30/2020. FINDINGS: Stable grade 1 retrolisthesis of L5 on S1. Vertebral body heights are preserved. No fracture. Visualized pelvis is intact. No CT evidence of high-grade spinal canal stenosis. Moderate scattered neural foraminal narrowing is greatest at L5-S1. Moderate atherosclerotic calcification. No acute finding in the visualized paravertebral soft tissues. IMPRESSION: 1. No acute CT finding in the lumbar spine. 2. Stable appearing spondylotic change. No CT evidence of high-grade spinal canal stenosis. Dictated by: Dictated on workstation # [id number]
[2022-10-25] MEDS ORDERED: TRM50T PO (21:39)
[2022-10-25 21:56] VITALS: BP 162/87
== END 2022-10-25 21:58 | disposition home or self-care (01) ==
LOC: EDUNIT# 20:10 → ER 20:11
DX: M54.50 Low back pain, unspecified (principal); G89.29 Other chronic pain; Z79.891 Long term (current) use of opiate analgesic
CPT/HCPCS: 72131

== ENCOUNTER 2022-11-22 15:22 | Outpatient (RCR) | payer MEDICARE, OTHER ==
[~2022-11-22 15:22] MED LIST changes: +ALEN70TA80; +ATOR20TA66; +EMPA1TAB19; +GBPN600T; +GLIM4TAB5; +HYOS0.1297; +MELO7.5T46; +VENL150C98
== END 2022-11-23 | disposition home or self-care (01) ==
PROVIDERS: ATTEND Pain Medicine Interventional Pain Medicine
DX: M47.26 Other spondylosis with radiculopathy, lumbar region (principal); M51.16 Intervertebral disc disorders with radiculopathy, lumbar region; M48.061 Spinal stenosis, lumbar region without neurogenic claudication; I10 Essential (primary) hypertension; E11.9 Type 2 diabetes mellitus without complications

== ENCOUNTER 2022-12-21 12:50 | Outpatient (RCR) | payer MEDICARE, OTHER | END 2022-12-21 13:48 | disposition home or self-care (01) | PROVIDERS: ATTEND Pain Medicine Interventional Pain Medicine | DX: M47.26 Other spondylosis with radiculopathy, lumbar region (principal); M51.16 Intervertebral disc disorders with radiculopathy, lumbar region; M48.061 Spinal stenosis, lumbar region without neurogenic claudication; I10 Essential (primary) hypertension; E11.9 Type 2 diabetes mellitus without complications ==